=== PATIENT | female | born 1940 | race Caucasian/White ===

== ENCOUNTER 2016-05-23 22:22 | Inpatient (IN) | payer MEDICARE, OTHER ==
[~2016-05-23] VITALS: Ht 152.4 cm; Wt 63.5 kg
[~2016-05-23 22:22] MED LIST: ACET-868 PO; ESCI10TA PO; HYDR-3326 PO; METO25TA6 PO; MULT1TAB11 PO; ONDA-25 PO; PANT40TA4 PO
[2016-05-23] MEDS ORDERED: ONDANSETRON HCL/PF 4 MG/2 ML VIAL ONE (23:18)
[2016-05-23] MEDS ORDERED: IV NS 0.9% 1,000 ML ONE (23:18)
[2016-05-23] MEDS ORDERED: IV SET PRIMARY 1 EA INFUS.SET MC ONE (23:18)
[2016-05-23] MEDS ORDERED: IV NS 0.9% 1,000 ML BAG IV ONE (23:30)
[2016-05-23] MEDS ORDERED: ONDANSETRON HCL/PF 4 MG/2 ML VIAL IVP ONE (23:30)
[2016-05-23] MEDS ORDERED: SENN8.6T6 PO (23:32)
[2016-05-23] MEDS ORDERED: GUAI5SYR PO (23:32)
[2016-05-23] MEDS ORDERED: MAGN400O6 PO (23:32)
[2016-05-23] MEDS ORDERED: RISP0.5T2 PO (23:32)
[2016-05-23] MEDS ORDERED: LORA1TAB82 PO (23:32)
[2016-05-23] MEDS ORDERED: GABA100C PO (23:32)
[2016-05-23] MEDS ORDERED: BENZ1LOZ58 MM (23:32)
[2016-05-23] MEDS ORDERED: DOCU-25 PO (23:32)
[2016-05-23] MEDS ORDERED: MAG30ORA PO (23:32)
[2016-05-23] MEDS ORDERED: ZOLP5TAB2 PO (23:32)
[2016-05-23 23:39] LABS: ANION GAP 9 (5-14); CALCIUM, SERUM 8.5 mg/dL (8.5-10.1); CARBON DIOXIDE 30 mmol/L (21-32); CHLORIDE 111 mmol/L (98-107); CREATININE 1.5 mg/dL (0.6-1.3); GLUCOSE 105 mg/dL (74-106); POTASSIUM 4.6 mmol/L (3.5-5.1); SODIUM SERUM 145 mmol/L (136-145); UREA NITROGEN, BLOOD 27 mg/dL (7-18)
[2016-05-23 23:42] LABS: BASOPHILS # (AUTO) 0.1 /CMM (0.0-0.2); BASOPHILS % (AUTO) 1.4 % (0.0-2.0); DIFF TOTAL % 100 %; EOSINOPHILS # (AUTO) 0.4 /CMM (0.0-0.7); EOSINOPHILS % (AUTO) 6.6 % (0.0-6.0); HEMATOCRIT 22 % (33-45); LYMPHOCYTES # (AUTO) 1.7 /CMM (0.8-4.8); LYMPHOCYTES % (AUTO) 27.9 % (20.0-44.0); MEAN CORPUSCULAR HEMOGLOBIN 24 PG (26.0-33.0); MEAN CORPUSCULAR HGB CONC 31 g/dl (31.0-36.0); MEAN CORPUSCULAR VOLUME 77 fL (82-100); MONOCYTES # (AUTO) 0.5 /CMM (0.1-1.30); MONOCYTES % (AUTO) 7.5 % (2.0-12.0); NEUTROPHILS # (AUTO) 3.5 /CMM (1.8-8.9); NEUTROPHILS % (AUTO) 56.6 % (43.0-81.0); PLATELET COUNT (AUTO) 307 /CMM (150-450); WHITE BLOOD COUNT (AUTO) 6.3 K/uL (4.3-11.0)
[2016-05-23 23:45] LABS: ALANINE AMINOTRANSFERASE 15 U/L (12-78); ALBUMIN 3.2 g/dL (3.4-5.0); ASPARTATE AMINOTRANSFERASE 7 U/L (15-37); BILIRUBIN,TOTAL 0.2 mg/dL (0.2-1.0)
[2016-05-23 23:46] LABS: INDIRECT BILIRUBIN 0.2 mg/dL (0.0-1.1)
[2016-05-23 23:47] LABS: TROPONIN I < 0.017 ng/mL (0.00-0.056)
[2016-05-23 23:50] LABS: HEMOGLOBIN 6.8 g/dL (11.5-14.8)
[2016-05-23 23:56] LABS: INR 0.94 (0.87-1.13)
[2016-05-24] VITALS (23 sets, daily range): BP systolic 93–130; BP diastolic 46–72
[2016-05-24 00:33] LABS: EOSINOPHILS % (MANUAL) 6 % (0-4); LYMPHOCYTES % (MANUAL) 33 % (16-48)
[2016-05-24 00:34] LABS: ANISOCYTOSIS 1+; HYPOCHROMASIA 2+; PLATELET ESTIMATE ADEQUATE
[2016-05-24 00:50] LABS: KETONES,URINE NEGATIVE (NEGATIVE); LEUKOCYTE ESTERASE ,URINE 2+ (NEGATIVE)
[2016-05-24 00:54] LABS: ADD UA MICROSCOPIC YES
[2016-05-24 01:02] LABS: ADD URINE CULTURE YES; WBC,URINE 21-50 /HPF (0-3)
[2016-05-24 01:03] LABS: URINALYSIS COMMENT FEW WBC CLUMPING
[2016-05-24] MEDS ORDERED: ACETAMINOPHEN 325 MG TABLET PO PRN (02:00)
[2016-05-24] MEDS ORDERED: ONDANSETRON HCL/PF 4 MG/2 ML VIAL IVP PRN (02:00)
[2016-05-24] MEDS ORDERED: LORAZEPAM 1 MG TABLET PO PRN (02:00)
[2016-05-24] MEDS ORDERED: Z GUARD REMEDY 2 OZ OINT TP PRN (02:00)
[2016-05-24 02:43] LABS: CHOLESTEROL 154 mg/dL (<200); HDL CHOLESTEROL 34 mg/dL (40-60); LDL 89 mg/dL (0-99); TRIGLYCERIDES 240 mg/dL (30-150)
[2016-05-24] MEDS ORDERED: IV NS 0.9% 250 ML IV ONE (07:41)
[2016-05-24] MEDS ORDERED: BLOOD IV SET 1 EA INFUS.SET MC ONE ×2 (07:41→11:20)
[2016-05-24 07:58] LABS: CALCIUM, SERUM 7.9 mg/dL (8.5-10.1); CREATININE 1.2 mg/dL (0.6-1.3); POTASSIUM 4.6 mmol/L (3.5-5.1)
[2016-05-24 08:01] LABS: DIFF TOTAL % 100 %; EOSINOPHILS # (AUTO) 0.3 /CMM (0.0-0.7); LYMPHOCYTES # (AUTO) 1.4 /CMM (0.8-4.8); MEAN CORPUSCULAR HEMOGLOBIN 24 PG (26.0-33.0); MEAN CORPUSCULAR HGB CONC 31 g/dl (31.0-36.0); MEAN CORPUSCULAR VOLUME 77 fL (82-100); MONOCYTES # (AUTO) 0.4 /CMM (0.1-1.30); MONOCYTES % (AUTO) 7.2 % (2.0-12.0); NEUTROPHILS % (AUTO) 58.8 % (43.0-81.0); PLATELET COUNT (AUTO) 265 /CMM (150-450); RED BLOOD CELL COUNT(AUTO) 2.65 MIL/uL (4.0-5.2); WHITE BLOOD COUNT (AUTO) 5.1 K/uL (4.3-11.0)
[2016-05-24 08:37] LABS: HEMATOCRIT 20 % (33-45); HEMOGLOBIN 6.3 g/dL (11.5-14.8)
[2016-05-24] MEDS: METOPROLOL TARTRATE 25 MG TABLET PO SCH ×2 (09:00→17:16)
[2016-05-24 09:46] LABS: EOSINOPHILS % (MANUAL) 5 % (0-4); LYMPHOCYTES % (MANUAL) 32 % (16-48)
[2016-05-24 09:47] LABS: HYPOCHROMASIA 1+; PLATELET ESTIMATE ADEQUATE
[2016-05-24 09:48] LABS: MICROCYTOSIS 1+
[2016-05-24] MEDS: ESCITALOPRAM OXALATE (10 MG) 10 MG TABLET PO SCH (10:10)
[2016-05-24] MEDS: GABAPENTIN 100 MG CAPSULE PO SCH ×3 (10:10→17:16)
[2016-05-24] MEDS ORDERED: SET RED CAP 1 EA INFUS.SET MC ONE (11:20)
[2016-05-24] MEDS: PANTOPRAZOLE 40 MG VIAL IV SCH (12:15)
[2016-05-24 12:26] LABS: THYROID STIMULATING HORMONE 3.055 uIU/mL (0.358-3.74); URIC ACID 5.3 mg/dL (2.6-7.2)
[2016-05-24] MEDS: MORPHINE SULFATE INJ 2 MG/ML DISP.SYRIN IV PRN ×2 (17:25→21:51)
[2016-05-24] MEDS: GUAIFENESIN/D-METHORPHAN HB 5 ML UDC PO PRN ×2 (17:25→22:34)
[2016-05-24 20:22] LABS: HEMOGLOBIN 9.1 g/dL (11.5-14.8)
[2016-05-24] MEDS: risperiDONE 0.25 MG TABLET PO SCH (21:41)
[2016-05-24] MEDS: ZOLPIDEM TARTRATE 5 MG TABLET PO SCH (21:42)
[2016-05-25] VITALS: BP 110/60
[2016-05-25 00:40] VITALS: BP 110/60
[2016-05-25 04:00] VITALS: BP 103/48
[2016-05-25] MEDS: GUAIFENESIN/D-METHORPHAN HB 5 ML UDC PO PRN ×4 (05:00→23:25)
[2016-05-25] MEDS: MORPHINE SULFATE INJ 2 MG/ML DISP.SYRIN IV PRN ×4 (05:08→20:54)
[2016-05-25 06:35] LABS: BASOPHILS % (AUTO) 0.6 % (0.0-2.0); DIFF TOTAL % 100 %; EOSINOPHILS # (AUTO) 0.4 /CMM (0.0-0.7); EOSINOPHILS % (AUTO) 5.3 % (0.0-6.0); HEMATOCRIT 29 % (33-45); HEMOGLOBIN 9.1 g/dL (11.5-14.8); LYMPHOCYTES # (AUTO) 1.3 /CMM (0.8-4.8); LYMPHOCYTES % (AUTO) 18.5 % (20.0-44.0); MEAN CORPUSCULAR HEMOGLOBIN 25 PG (26.0-33.0); MEAN CORPUSCULAR HGB CONC 31 g/dl (31.0-36.0); MEAN CORPUSCULAR VOLUME 80 fL (82-100); MONOCYTES # (AUTO) 0.4 /CMM (0.1-1.30); MONOCYTES % (AUTO) 5.9 % (2.0-12.0); NEUTROPHILS # (AUTO) 4.8 /CMM (1.8-8.9); NEUTROPHILS % (AUTO) 69.7 % (43.0-81.0); RED BLOOD CELL COUNT(AUTO) 3.63 MIL/uL (4.0-5.2); RETICULOCYTE COUNT 2.4 % (0.6-2.5); WHITE BLOOD COUNT (AUTO) 6.9 K/uL (4.3-11.0)
[2016-05-25 06:48] LABS: CALCIUM, SERUM 8.4 mg/dL (8.5-10.1); CREATININE 1.3 mg/dL (0.6-1.3); PHOSPHORUS 3.6 mg/dL (2.5-4.9); POTASSIUM 4.2 mmol/L (3.5-5.1)
[2016-05-25 07:24] LABS: THYROID STIMULATING HORMONE 3.504 uIU/mL (0.358-3.74)
[2016-05-25 07:45] LABS: ERYTHROCYTE SEDIMENTATION RATE 27 MM/HR (0-30)
[2016-05-25 08:00] VITALS: BP 104/49
[2016-05-25] MEDS: ESCITALOPRAM OXALATE (10 MG) 10 MG TABLET PO SCH (08:59)
[2016-05-25] MEDS: PANTOPRAZOLE 40 MG VIAL IV SCH (08:59)
[2016-05-25] MEDS: GABAPENTIN 100 MG CAPSULE PO SCH ×3 (08:59→17:01)
[2016-05-25] MEDS: METOPROLOL TARTRATE 25 MG TABLET PO SCH ×2 (09:00→16:25)
[2016-05-25 10:36] LABS: EOSINOPHILS % (MANUAL) 4 % (0-4); LYMPHOCYTES % (MANUAL) 13 % (16-48)
[2016-05-25 10:37] LABS: ANISOCYTOSIS 1+; HYPOCHROMASIA 1+; PLATELET ESTIMATE DECREASED
[2016-05-25 10:38] LABS: PLATELET COUNT (AUTO) 73 /CMM (150-450)
[2016-05-25] MEDS ORDERED: SULFAMETH/TRIMETH 800/160 MG 1 UDTAB TABLET PO ONE (11:00)
[2016-05-25] MEDS ORDERED: IV SET PRIMARY PUMP SET 1 EA INFUS.SET MC ONE ×2 (11:18→18:41)
[2016-05-25] MEDS: Magnesium 1GM/D5W 100ML PREMIX 100 ML IV SCH ×2 (11:25→13:33)
[2016-05-25] MEDS: SULFAMETH/TRIMETH 800/160 MG 1 UDTAB TABLET PO SCH ×2 (11:25→22:38)
[2016-05-25 12:17] LABS: *SPE ALBUMIN 3.4 g/dL (2.9-4.4)
[2016-05-25 16:00] VITALS: BP 135/73
[2016-05-25] MEDS ORDERED: SOD FERRIC GLUC 125 MG in IV NS 0.9% 100 ML IV SCH (16:00)
[2016-05-25 20:00] VITALS: BP 127/76
[2016-05-25] MEDS: ZOLPIDEM TARTRATE 5 MG TABLET PO SCH (22:37)
[2016-05-25] MEDS: risperiDONE 0.25 MG TABLET PO SCH (22:38)
[2016-05-26] VITALS: BP 111/54
[2016-05-26 04:00] VITALS: BP 124/68
[2016-05-26 06:49] LABS: CALCIUM, SERUM 8.3 mg/dL (8.5-10.1); CREATININE 1.4 mg/dL (0.6-1.3); POTASSIUM 4.6 mmol/L (3.5-5.1)
[2016-05-26 08:00] VITALS: BP 103/73
[2016-05-26 08:15] LABS: VIT D, 25-HYDROXY 24.6 ng/mL (30.0-100.0)
[2016-05-26] MEDS: PANTOPRAZOLE 40 MG VIAL IV SCH ×2 (09:00→09:56)
[2016-05-26] MEDS: GUAIFENESIN/D-METHORPHAN HB 5 ML UDC PO PRN (10:33)
[2016-05-26] MEDS: ESCITALOPRAM OXALATE (10 MG) 10 MG TABLET PO SCH (10:33)
[2016-05-26] MEDS: GABAPENTIN 100 MG CAPSULE PO SCH ×2 (10:33→12:58)
[2016-05-26 10:35] VITALS: BP 132/91
[2016-05-26] MEDS: METOPROLOL TARTRATE 25 MG TABLET PO SCH (10:35)
[2016-05-26] MEDS: FERROUS SULFATE (325 MG) 325 MG/TAB TABLET PO SCH ×2 (10:36→12:58)
[2016-05-26] MEDS ORDERED: SULFAMETH/TRIMETH 800/160 MG 1 UDTAB TABLET PO SCH ×2 (11:00→22:00)
== END 2016-05-26 14:00 | DRG 811 ==
LOC: ER 22:27 → TELE 05-24 01:53 → MED 05-26 08:55
PROVIDERS: ATTEND Family Medicine
PROC: 30233N1 Transfusion of Nonautologous Red Blood Cells into Peripheral Vein, Percutaneous Approach (ICD-10-PCS; principal; 2016-05-24)
DX: D50.9 Iron deficiency anemia, unspecified (principal); N17.0 Acute kidney failure with tubular necrosis; N39.0 Urinary tract infection, site not specified; K76.9 Liver disease, unspecified; M19.90 Unspecified osteoarthritis, unspecified site; K21.9 Gastro-esophageal reflux disease without esophagitis; I25.10 Atherosclerotic heart disease of native coronary artery without angina pectoris; I11.9 Hypertensive heart disease without heart failure; F32.9 Major depressive disorder, single episode, unspecified; F03.90 Unspecified dementia, unspecified severity, without behavioral disturbance, psychotic disturbance, mood disturbance, and anxiety; Z87.11 Personal history of peptic ulcer disease; G89.4 Chronic pain syndrome; M54.5 Low back pain; Z87.891 Personal history of nicotine dependence; F41.9 Anxiety disorder, unspecified
CPT/HCPCS: 36415; 71010-TC; 76705-TC; 80048-TC; 80061-TC; 80076-TC; 81000-TC; 82105; 82306; 82378; 82728-TC; 82746; 83540-TC; 83615-TC; 83690-TC; 83735-TC; 84100-TC; 84155; 84165; 84443-TC; 84484-TC; 84550-TC; 85025-TC; 85027-TC; 85045-TC; 85652-TC; 85730-TC; 86304; 86850-TC; 86921-TC; 87081-TC; 87086-TC; 87186-TC; 97001-TC; A4606; C9113; J2270; J2405; J2916; J3475; J7030; J7050; P9016-BL; Z7610

== ENCOUNTER 2016-11-04 19:01 | Inpatient (IN) | payer MEDICARE, OTHER ==
[~2016-11-04] VITALS: Ht 154.9 cm; Wt 78.7 kg
[~2016-11-04 19:01] MED LIST changes: +BENZ1LOZ58 MM; +DOCU-25 PO; +GABA100C PO; +GUAI5SYR PO; -HYDR-3326 PO; +LORA1TAB82 PO; +MAG30ORA PO; +MAGN400O6 PO; -ONDA-25 PO; -PANT40TA4 PO; +RISP0.5T2 PO; +SENN8.6T6 PO; +ZOLP5TAB2 PO
--- NOTE | 2016-11-04 19:15 | NUR ---
76 YO FEMALE BB RA. PT IS ALERT X 3, C/O ABD PAIN WITH FEVER. PT DENIES SOB, N/V/DIARRHEA. PT GOWNED, PLACED ON CURB ATTENDANT. SKIN WARM AND DRY, RR EVEN AND UNLABORED. AWAITING ORDERS FROM PROVIDER
--- NOTE | 2016-11-04 19:35 | NUR ---
PADRON CATH STARTED PER MD ORDER
[2016-11-04] MEDS ORDERED: ONDANSETRON HCL/PF 4 MG/2 ML VIAL ONE (19:42)
--- NOTE | 2016-11-04 19:45 | NUR ---
EMT AT BED SIDE FOR EKG
--- NOTE | 2016-11-04 19:49 | NUR ---
MEDICATED PT ORDERED
[2016-11-04 19:55] LABS: LYMPHOCYTES # (AUTO) 0.7 /CMM (0.8-4.8); RDW COEFFICIENT OF VARIATION 15.9 (11.5-15.0)
[2016-11-04 19:59] LABS: BASOPHILS % (AUTO) 0.1 % (0.0-2.0); EOSINOPHILS % (AUTO) 0.2 % (0.0-6.0); HEMATOCRIT 26 % (33-45); HEMOGLOBIN 8.4 g/dL (11.5-14.8); LYMPHOCYTES % (AUTO) 5.8 % (20.0-44.0); MEAN CORPUSCULAR HEMOGLOBIN 26 PG (26.0-33.0); MEAN CORPUSCULAR HGB CONC 33 g/dl (31.0-36.0); MEAN CORPUSCULAR VOLUME 81 fL (82-100); MONOCYTES # (AUTO) 0.8 /CMM (0.1-1.30); MONOCYTES % (AUTO) 6.4 % (2.0-12.0); NEUTROPHILS # (AUTO) 10.8 /CMM (1.8-8.9); NEUTROPHILS % (AUTO) 87.5 % (43.0-81.0); PLATELET COUNT (AUTO) 435 /CMM (150-450); RED BLOOD CELL COUNT(AUTO) 3.22 MIL/uL (4.0-5.2); WHITE BLOOD COUNT (AUTO) 12.3 K/uL (4.3-11.0)
[2016-11-04] MEDS ORDERED: IV NS 0.9% 1,000 ML BAG IV ONE ×3 (20:00→22:00)
[2016-11-04] MEDS ORDERED: AZTREONAM 2 G in IV NS 0.9% 100 ML IV ONE (20:00)
[2016-11-04] MEDS ORDERED: ONDANSETRON HCL/PF 4 MG/2 ML VIAL IVP ONE (20:00)
[2016-11-04 20:05] LABS: CALCIUM, SERUM 8.6 mg/dL (8.5-10.1); CARBON DIOXIDE 23 mmol/L (21-32); CHLORIDE 99 mmol/L (98-107); GLUCOSE 104 mg/dL (74-106); POTASSIUM 4.5 mmol/L (3.5-5.1); SODIUM SERUM 133 mmol/L (136-145); UREA NITROGEN, BLOOD 45 mg/dL (7-18)
[2016-11-04] MEDS ORDERED: AZTREONAM 1 G VIAL ONE (20:07)
[2016-11-04 20:08] LABS: INR 1.13 (0.87-1.13); PROTHROMBIN TIME 11.9 SECS (9.5-12.7)
[2016-11-04 20:11] LABS: ALANINE AMINOTRANSFERASE 8 U/L (12-78); ALKALINE PHOSPHATASE 82 U/L (46-116); ASPARTATE AMINOTRANSFERASE 10 U/L (15-37); BILIRUBIN,DIRECT 0.1 mg/dL (0.0-0.2); BILIRUBIN,TOTAL 0.3 mg/dL (0.2-1.0); LIPASE 44 U/L (73-393); TOTAL PROTEIN, SERUM 6.9 g/dL (6.4-8.2)
[2016-11-04 20:13] LABS: TROPONIN I < 0.017 ng/mL (0.00-0.056)
[2016-11-04 21:19] LABS: BAND % (MANUAL) 13 % (0.0-5.0); LYMPHOCYTES % (MANUAL) 11 % (16-48); MONOCYTES % (MANUAL) 12 % (0-11.0); NEUTROPHILS % (MANUAL) 64 (42-76)
[2016-11-04 21:33] LABS: APPEARANCE,URINE Turbid (CLEAR); BILIRUBIN,URINE MODERATE (NEGATIVE); BLOOD, URINE Large Ery/uL (NEGATIVE); COLOR,URINE Yellow (YELLOW); KETONES,URINE Trace (NEGATIVE); LEUKOCYTE ESTERASE ,URINE Small (NEGATIVE); NITRITE, URINE Negative (NEGATIVE); PROTEIN,URINE >=300 mg/dl (NEGATIVE); UGLUCOSE Negative (NEGATIVE); UROBILINOGEN,URINE 0.2 EU/dL (0.2)
[2016-11-04 21:43] LABS: BACTERIA,URINE 3+ /HPF (None Seen); RBC,URINE TOO NUMEROUS TO COUN /HPF (0-2); SQUAMOUS EPITHELIAL CELL,UR Rare /HPF (None Seen); WBC,URINE TOO NUMEROUS TO COUN /HPF (0-3)
--- NOTE | 2016-11-04 21:46 | NUR ---
PT BP 86/48, RAY NOTIFIED. MEDICATED PT ORDERED
--- NOTE | 2016-11-04 22:31 | NUR ---
PT BP 76/50. MD SHARMA NOTIFIED. WILL START LEVOPHED PER ORDER MD SHARMA; TITRATE FOR SBP IN 90'S AND AWAIT CALLBACK FROM MD CORNEJO
[2016-11-04 22:36] LABS: HEMOGLOBIN 7.2 g/dL (11.5-14.8)
[2016-11-04] MEDS ORDERED: NOREPINEPHRINE 4 MG/4 ML AMPUL IV ONE ×2 (22:48→22:52)
[2016-11-04] MEDS ORDERED: NOREPINEPHRINE 8 MG in IV D5W 500 ML IV ONE (23:00)
--- NOTE | 2016-11-04 23:04 | NUR ---
STARTED LEVOPHED PER VERBAL ORDER SOHAN SHARMA. BP 92/51, WILL CONTINUE TO MONITOR
--- NOTE | 2016-11-04 23:23 | NUR ---
TITRATED LEVOPHED TO 12MCG/ MIN, SBP NOW 101, MD NOTIFIED
--- NOTE | 2016-11-04 23:50 | NUR ---
TRANSPORTED PT TO ICU BED WITH EMT WITHOUT INCIDENT
[2016-11-05] VITALS (69 sets, daily range): BP systolic 72–135; BP diastolic 28–74
[2016-11-05] MEDS ORDERED: MAGNESIUM HYDROXIDE 30 ML UDC PO PRN
[2016-11-05] MEDS ORDERED: Z GUARD REMEDY 2 OZ OINT TP PRN
[2016-11-05] MEDS ORDERED: ONDANSETRON HCL/PF 4 MG/2 ML VIAL IVP PRN
[2016-11-05] MEDS ORDERED: ZOLPIDEM TARTRATE 5 MG TABLET PO PRN
[2016-11-05] MEDS ORDERED: LORAZEPAM 1 MG TABLET PO PRN (00:30)
[2016-11-05] MEDS ORDERED: MAG HYDROX/AL HYDROX/SIMETH 30 ML UDC PO PRN ×2 (00:30)
[2016-11-05] MEDS ORDERED: GUAIFENESIN/D-METHORPHAN HB 5 ML UDC PO PRN (00:30)
[2016-11-05] MEDS ORDERED: ACETAMINOPHEN 325 MG TABLET PO PRN ×2 (00:30)
[2016-11-05] MEDS ORDERED: MAGNESIUM HYDROXIDE 30 ML UDC PO SCH (00:30)
[2016-11-05] MEDS ORDERED: NOREPINEPHRINE 8 MG in IV D5W 500 ML IV PRN (02:00)
[2016-11-05 03:11] LABS: CALCIUM, SERUM 7.5 mg/dL (8.5-10.1); CARBON DIOXIDE 18 mmol/L (21-32); CHLORIDE 104 mmol/L (98-107); CREATININE 3.2 mg/dL (0.6-1.3); GLUCOSE 176 mg/dL (74-106); MAGNESIUM 1.8 mg/dL (1.8-2.4); PHOSPHORUS 4.3 mg/dL (2.5-4.9); POTASSIUM 4.1 mmol/L (3.5-5.1); SODIUM SERUM 133 mmol/L (136-145); UREA NITROGEN, BLOOD 41 mg/dL (7-18)
[2016-11-05 03:14] LABS: CHOLESTEROL 82 mg/dL (<200); HDL CHOLESTEROL 23 mg/dL (40-60); LDL 39 mg/dL (0-99); TRIGLYCERIDES 87 mg/dL (30-150)
[2016-11-05 03:28] LABS: EOSINOPHILS % (AUTO) 0.2 % (0.0-6.0); HEMATOCRIT 25 % (33-45); HEMOGLOBIN 7.8 g/dL (11.5-14.8); LYMPHOCYTES # (AUTO) 1.1 /CMM (0.8-4.8); LYMPHOCYTES % (AUTO) 7.7 % (20.0-44.0); MEAN CORPUSCULAR HEMOGLOBIN 26 PG (26.0-33.0); MEAN CORPUSCULAR HGB CONC 31 g/dl (31.0-36.0); MEAN CORPUSCULAR VOLUME 82 fL (82-100); MONOCYTES # (AUTO) 0.5 /CMM (0.1-1.30); MONOCYTES % (AUTO) 3.7 % (2.0-12.0); NEUTROPHILS # (AUTO) 12.2 /CMM (1.8-8.9); NEUTROPHILS % (AUTO) 88.4 % (43.0-81.0); PLATELET COUNT (AUTO) 322 /CMM (150-450); RDW COEFFICIENT OF VARIATION 17.1 (11.5-15.0); RED BLOOD CELL COUNT(AUTO) 3.03 MIL/uL (4.0-5.2); WHITE BLOOD COUNT (AUTO) 13.8 K/uL (4.3-11.0)
[2016-11-05 04:19] LABS: BAND % (MANUAL) 55 % (0.0-5.0); LYMPHOCYTES % (MANUAL) 4 % (16-48); MONOCYTES % (MANUAL) 11 % (0-11.0); NEUTROPHILS % (MANUAL) 30 (42-76)
[2016-11-05] MEDS ORDERED: NOREPINEPHRINE 4 MG/4 ML AMPUL IV ONE (04:20)
--- NOTE | 2016-11-05 05:00 | NUR ---
RN NOTE AZACTAM 1 GRAM WAS NOT GIVEN @ 0500 DUE TO UNAVAILABILITY IN ENTIRE HOSPITAL. WILL CALL PHARMACY FOR DOSE. WILL ALSO ENDORSE TO AM RN.
--- NOTE | 2016-11-05 06:25 | NUR ---
RADIO NEWS ANCHOR PT WAS ADMITTED FROM ER WITH DIAGNOSIS SEPSIS, UTI, COLITIS. PT IS AWAKE, ALERT,ORIENTED, FOLLOW COMMANDS, SPEECH IS CLEAR, VALDO. MOVES ALL EXTREMITIES, LEGS ARE WEAK. PT IS ON O2 2L VIA N/C. LUNGS CLEAR. SCOPE-SR. NS IV BOLUS- 3000 ML GIVEN IN ER. PT WAS STILL HYPOTENSIVE. STARTED LEVOPHED DRIP / TITRATED TO KEEP SBP>90/ PT HAS CHRONIC ANEMIA. NO S/S OF ANY BLEEDING. IF HGB DROPS BELOW 7, GIVE 2 UNITS OF PRBC. / CURRENT H/H IS 7.8/25 /PT IS ANURIC /ACUTE RENAL FAILURE/. WILL FOLLOW CLOSE MONITORING.
[2016-11-05] MEDS ORDERED: PANTOPRAZOLE 40 MG TABLET.DR PO SCH (07:30)
--- NOTE | 2016-11-05 07:35 | NUR ---
MARINE ENGINEER RECEIVED PATIENT FROM THE PREVIOUS SHIFT. PATIENT IS IN BED. RESTING COMFORTABLY. NO ACUTE DISTRESS NOTED. EVEN AND NON LABORED BREATHING PATTERN. ON 3L NASAL CANNULA. AFEBRILE. SINUS RHYTHM ON MONITOR. TURNED AND REPOSITIONED FOR COMFORT AND WOUND PREVENTION. WILL CONTINUE TO MONITOR AND PROVIDE CARE.
[2016-11-05] MEDS ORDERED: MENTHOL/CETYLPYRD (CEPACOL) 1 LOZ LOZENGE MM PRN (08:00)
[2016-11-05] MEDS ORDERED: METOPROLOL TARTRATE 25 MG TABLET PO SCH (09:00)
[2016-11-05] MEDS: GABAPENTIN 100 MG CAPSULE PO SCH ×3 (09:00→17:19)
[2016-11-05] MEDS: MULTIVITAMINS,THERAGRAN 1 UDTAB TABLET PO SCH (09:00)
[2016-11-05] MEDS: DOCUSATE SODIUM 100 MG CAPSULE PO SCH ×3 (09:00→17:19)
[2016-11-05] MEDS: ESCITALOPRAM OXALATE (10 MG) 10 MG TABLET PO SCH (09:00)
[2016-11-05] MEDS ORDERED: FAMOTIDINE/PF INJ 20 MG/2 ML VIAL IV SCH (09:30)
[2016-11-05] MEDS: FAMOTIDINE/PF INJ 20 MG/2 ML VIAL IV SCH (09:48)
[2016-11-05] MEDS: AZTREONAM 1 G in IV NS 0.9% 100 ML IV SCH ×2 (09:49→15:05)
[2016-11-05] MEDS: HYDROCODONE/APAP 5/325MG 1 EACH TABLET PO PRN ×3 (10:03→18:54)
[2016-11-05] MEDS: IV NS 0.9% 1,000 ML IV PRN (13:07)
[2016-11-05] MEDS ORDERED: METRONIDAZOLE 500MG/ NS 100ML 250 MG in PREMIX 1 EA IV SCH (14:00)
[2016-11-05] MEDS ORDERED: LEVOFLOXACIN 500 MG /D5W 100ML 500 MG in PREMIX 1 EA IV ONE (15:00)
[2016-11-05] MEDS: METRONIDAZOLE 500MG/ NS 100ML 500 MG in PREMIX 1 EA IV SCH ×2 (15:06→21:03)
[2016-11-05] MEDS: NOREPINEPHRINE 16 MG in IV D5W 500 ML IV PRN (15:09)
--- NOTE | 2016-11-05 19:00 | NUR ---
RN INITIAL NOTE RECEIVED PT IN NO ACUTE DISTRESS IN BED. PT IS A/O X 1 WITH PERIODS OF CONFUSION. PT IS ON O2 VIA NC AT 4LPM AND TOLERATING WELL WITH O2 SAT @ 97%. PT NOT C/O ANY SOB, DIFFICULTY BREATHING OR PAIN AT THIS TIME. PT IS ON TELE BEDSIDE MONITORING WITH SR ON THE MONITOR. PT HAS ZORAN PICC THAT IS CLEAN DRY INTACT AND PATENT WITH NS @ 100ML/HR AND LEVOPHED @ 21 MCG/HR (TITRATABLE). PT HAS LEJ 20G THAT IS CLEAN DRY INTACT AND PATENT WITH SALINE FLUSH. BED IN LOW LOCK POSITION WITH RAILS UP X 2. CALL LIGHT WITHIN REACH AND ALL SAFETY MEASURES ENSURED. WILL CONTINUE TO MONITOR PT.
[2016-11-05] MEDS: risperiDONE 0.25 MG TABLET PO SCH (22:15)
[2016-11-05] MEDS: SENNOSIDES 8.6 MG TABLET PO SCH (22:15)
[2016-11-05] MEDS: ZOLPIDEM TARTRATE 5 MG TABLET PO SCH (22:16)
[2016-11-06] VITALS (92 sets, daily range): BP systolic 54–218; BP diastolic 23–159
[2016-11-06] MEDS: AZTREONAM 1 G in IV NS 0.9% 100 ML IV SCH ×4 (00:17→23:40)
[2016-11-06] MEDS: NOREPINEPHRINE 16 MG in IV D5W 500 ML IV PRN ×3 (00:18→18:26)
[2016-11-06] MEDS: HYDROCODONE/APAP 5/325MG 1 EACH TABLET PO PRN (00:18)
[2016-11-06] MEDS: IV NS 0.9% 1,000 ML IV PRN ×2 (03:02→16:45)
[2016-11-06] MEDS: METRONIDAZOLE 500MG/ NS 100ML 500 MG in PREMIX 1 EA IV SCH ×3 (04:21→21:03)
[2016-11-06 04:56] LABS: BASOPHILS % (AUTO) 0.1 % (0.0-2.0); EOSINOPHILS % (AUTO) 0.4 % (0.0-6.0); HEMATOCRIT 26 % (33-45); HEMOGLOBIN 8.2 g/dL (11.5-14.8); LYMPHOCYTES # (AUTO) 0.4 /CMM (0.8-4.8); LYMPHOCYTES % (AUTO) 4.4 % (20.0-44.0); MEAN CORPUSCULAR HEMOGLOBIN 25 PG (26.0-33.0); MEAN CORPUSCULAR HGB CONC 31 g/dl (31.0-36.0); MEAN CORPUSCULAR VOLUME 82 fL (82-100); MONOCYTES # (AUTO) 0.4 /CMM (0.1-1.30); MONOCYTES % (AUTO) 4.4 % (2.0-12.0); NEUTROPHILS # (AUTO) 8.8 /CMM (1.8-8.9); NEUTROPHILS % (AUTO) 90.7 % (43.0-81.0); PLATELET COUNT (AUTO) 475 /CMM (150-450); RDW COEFFICIENT OF VARIATION 16.5 (11.5-15.0); RED BLOOD CELL COUNT(AUTO) 3.22 MIL/uL (4.0-5.2); WHITE BLOOD COUNT (AUTO) 9.6 K/uL (4.3-11.0)
[2016-11-06 05:09] LABS: CALCIUM, SERUM 7.7 mg/dL (8.5-10.1); CARBON DIOXIDE 17 mmol/L (21-32); CHLORIDE 101 mmol/L (98-107); CREATININE 2.7 mg/dL (0.6-1.3); GLUCOSE 118 mg/dL (74-106); MAGNESIUM 1.6 mg/dL (1.8-2.4); PHOSPHORUS 4.2 mg/dL (2.5-4.9); POTASSIUM 4.3 mmol/L (3.5-5.1); SODIUM SERUM 131 mmol/L (136-145); UREA NITROGEN, BLOOD 40 mg/dL (7-18)
[2016-11-06 05:32] LABS: BAND % (MANUAL) 2 % (0.0-5.0); EOSINOPHILS % (MANUAL) 1 % (0-4); LYMPHOCYTES % (MANUAL) 11 % (16-48); MONOCYTES % (MANUAL) 6 % (0-11.0); NEUTROPHILS % (MANUAL) 80 (42-76)
--- NOTE | 2016-11-06 07:00 | NUR ---
ICU INITIAL NOTE RECEIVED PT IN BED, ASLEEP, EASY TO AROUSE, PT IS VERY DROWSY, ABLE TO FOLLOW COMMANDS, ABLE TO MAKE NEEDS KNOWN, PT IS ON BEDSIDE MONITOR SHOWING SR 80'S, NO S/S OF CHEST PAIN OR DISCOMFORT AT THIS TIME, PT IS ON 4L NC,SATING 96%, NO C/O OF SOB OR RESP.DISTRESS AT THIS TIME, PT IS CURRENTLY NPO EXCEPT MEDS, PT HAS F/C DRAINING MINIMAL URINE TO GRAVITY, PT HAS VERY LOOSE WATERY GREEN STOOL, PT HAS ZORAN MIDLINE, RUNNING LEVO @21MCG/MIN, NS@ 100ML/HR, C/D/I/PATENT, FLUSHING WELL, WITH GOOD BLOOD RETURN, NO S/S OF INFECTION/ INFILTRATION, RIJ #20G,SL, C/D/I/PATENT, FLUSHING WELL, NO S/S OF INFECTION/ INFILTRATION NOTED, PT IS NOTED WITH REDNESS, TREATMENT ACK AND CARRIED OUT, ALL SAFETY MEASURES IN PLACE AT ALL TIMES, CALL LIGHT WITHIN EASY REACH, WILL MONITOR PT TRISTIAN FOR CHANGES
--- NOTE | 2016-11-06 07:05 | NUR ---
RN CLOSING NOTE PT REMAINS IN NO ACUTE DISTRESS IN BED. PT DID NOT HAVE ANY SIGNIFICANT CHANGE IN CONDITION DURING SHIFT. ALL NEEDS MET ALL ORDERS CARRIED OUT. WILL ENDORSE REPORT TO AM RN FOR CONTINUITY OF CARE.
--- NOTE | 2016-11-06 08:30 | NUR ---
ICU NOTE PHOTOS TAKEN AND WOUND CONSULT ORDERED
[2016-11-06] MEDS: DOCUSATE SODIUM 100 MG CAPSULE PO SCH ×3 (08:33→16:37)
[2016-11-06] MEDS: MULTIVITAMINS,THERAGRAN 1 UDTAB TABLET PO SCH (08:34)
[2016-11-06] MEDS: ESCITALOPRAM OXALATE (10 MG) 10 MG TABLET PO SCH (08:34)
[2016-11-06] MEDS: GABAPENTIN 100 MG CAPSULE PO SCH ×3 (08:34→16:48)
[2016-11-06] MEDS: FAMOTIDINE/PF INJ 20 MG/2 ML VIAL IV SCH (09:00)
--- NOTE | 2016-11-06 10:00 | NUR ---
ICU NOTE DR. SANDOVAL MADE ROUNDS, AWARE OF ALL LABS AND TEST RESULTS, ORDERED FLEXISEAL. ALL ORDERS ACK
[2016-11-06 12:17] LABS: IRON, SERUM 15 ug/dl (50-175); TOTAL IRON BINDING CAPACITY 112 ug/dl (250-450)
--- NOTE | 2016-11-06 12:30 | NUR ---
ICU NOTE PAGED DR.YOKO ELIZABETH MD REGARDING POSITIVE CULTURES, AWAITING CALL BACK
[2016-11-06 12:31] LABS: FERRITIN 161 ng/mL (8-388)
[2016-11-06] MEDS ORDERED: FEE PK DOSING 1 MIN EA MC ONE (13:34)
[2016-11-06] MEDS ORDERED: VANCOMYCIN 0.75 GM in IV D5W 250 ML IV SCH (14:00)
[2016-11-06 15:36] LABS: OCCULT BLOOD STOOL POSITIVE (NEGATIVE)
--- NOTE | 2016-11-06 16:44 | NUR ---
ICU NOTE CALLED BACK, ALL NEW ORDERS ACK
[2016-11-06] MEDS: Magnesium 1GM/D5W 100ML PREMIX 100 ML IV SCH ×2 (16:45→17:33)
[2016-11-06] MEDS ORDERED: RENAL NOVASOURCE 1,000 ML BOTTLE GT PRN (17:00)
[2016-11-06] MEDS ORDERED: Magnesium 1GM/D5W 100ML PREMIX PIGGYBACK IV ONE (17:00)
--- NOTE | 2016-11-06 19:52 | NUR ---
SHEET METAL FABRICATOR: RECEIVED PT FROM DAY SHIFT RN, PT IS AAO X 2, ABLE TO MAKE NEEDS, ON PRESSORS LEVOPHED AT 21 MCG/MIN TITRATED DOWN TO 18 MCG/MIN, CONTINUE MONITORING BP, ON 4 L NASAL CANNULA, SATURATING 92-95%, NO DISTRESS. PT C/O PAIN 07/02 WILL GIVE TYLENOL PRN. NS GRAVITY WITH LOW URINE OUTPUT, MD AWARE. COMPLETE ASSESSMENT SEE ON FLOW SHEET. KEEP MONITORING..
[2016-11-06] MEDS: ZOLPIDEM TARTRATE 5 MG TABLET PO SCH (20:53)
--- NOTE | 2016-11-06 20:54 | NUR ---
CORROSION CONTROL SPECIALIST: AMBIEN 2.5 MG PO NOT GIVEN BECAUSE PT LOOKS SO DROWSY, LETHARGIC AND SLEEPY, WILL MONITOR....
[2016-11-06] MEDS: SENNOSIDES 8.6 MG TABLET PO SCH (20:55)
[2016-11-06] MEDS: risperiDONE 0.25 MG TABLET PO SCH (21:03)
[2016-11-07] VITALS (86 sets, daily range): BP systolic 76–118; BP diastolic 34–93
[2016-11-07] MEDS: IV NS 0.9% 1,000 ML IV PRN ×2 (04:42→15:05)
[2016-11-07] MEDS: METRONIDAZOLE 500MG/ NS 100ML 500 MG in PREMIX 1 EA IV SCH ×3 (04:43→21:18)
--- NOTE | 2016-11-07 07:15 | NUR ---
AUTO BODY REPAIR TECHNICIAN NOTES RECEIVED PATIENT AOX 2-3 , NOT IN ACUTE DISTRESS , DENIES SOB AND DISCOMFORT AT THIS TIME , SPO2 OF 98% VIA 3LPM NC , SR 75 ON BEDSIDE MONITOR , FC DRAINING WELL VIA GRAVITY WITH CLEAR YELLOW URINE , ZORAN MIDLINE PATENT AND INTACT WITH LEVOPHED @ 6MCG/MIN , NS @ 100NL/HR INFUSING WELL , R EJ # 20 PATENT AND INTACT SL , ALL NEEDS ATTENDED , BED ON LOW AND LOCKED POSITION , SIDE RAILS X2 ,CALL LIGHT WITHIN REACH , HOB @ 35 , WILL CONTINUE TO MONITOR
[2016-11-07] MEDS: DOCUSATE SODIUM 100 MG CAPSULE PO SCH (07:59)
[2016-11-07] MEDS: AZTREONAM 1 G in IV NS 0.9% 100 ML IV SCH (07:59)
[2016-11-07] MEDS: ESCITALOPRAM OXALATE (10 MG) 10 MG TABLET PO SCH (08:00)
[2016-11-07] MEDS: GABAPENTIN 100 MG CAPSULE PO SCH ×3 (08:00→16:01)
[2016-11-07] MEDS: MULTIVITAMINS,THERAGRAN 1 UDTAB TABLET PO SCH (08:01)
--- NOTE | 2016-11-07 08:18 | NUR ---
WOUND CARE CONSULT: PT PRESENTS WITH REDNESS AND RASH TO BUTTOCKS AND PERINEUM, PRESENT ON ADMISSION. PT NOTED TO BE INCONTINENT OF LOOSE STOOL. PT ON FIRST STEP MATTRESS. ALL SKIN PROTECTION MEASURES DISCUSSED WITH NURSING STAFF. WILL SEE PRN. OWUSU IN AGREEMENT WITH PLAN OF CARE. Addendum: 11/07/16 at 0819 by KARTIK MOON WNDNU Amended: Links added.
--- NOTE | 2016-11-07 08:38 | NUR ---
AIR EXPORT LOGISTICS MANAGER NOTES COLACE HELD , PT HAVING ACTIVE DIARRHEA , WILL CONTINUE TO MONITOR
[2016-11-07 08:43] LABS: EOSINOPHILS # (AUTO) 0.1 /CMM (0.0-0.7); EOSINOPHILS % (AUTO) 0.9 % (0.0-6.0); LYMPHOCYTES # (AUTO) 0.3 /CMM (0.8-4.8); MEAN CORPUSCULAR HEMOGLOBIN 26 PG (26.0-33.0); MEAN CORPUSCULAR HGB CONC 32 g/dl (31.0-36.0); MEAN CORPUSCULAR VOLUME 81 fL (82-100); MONOCYTES # (AUTO) 0.2 /CMM (0.1-1.30); MONOCYTES % (AUTO) 3.5 % (2.0-12.0); NEUTROPHILS # (AUTO) 6.1 /CMM (1.8-8.9); NEUTROPHILS % (AUTO) 91.6 % (43.0-81.0); PLATELET COUNT (AUTO) 191 /CMM (150-450); RDW COEFFICIENT OF VARIATION 16.8 (11.5-15.0); RED BLOOD CELL COUNT(AUTO) 2.01 MIL/uL (4.0-5.2); WHITE BLOOD COUNT (AUTO) 6.7 K/uL (4.3-11.0)
--- NOTE | 2016-11-07 08:46 | NUR ---
MATE FISHING VESSEL NOTES DR SANDOVAL AT BEDSIDE ,DISCUSSED PATIENT STATUS , ON LEVOPHED @ 6MCG/MIN TO KEEP SBP ABOVE 65 , STILL HAVING DIARRHEA , PENDING C DIFF STOOL RESULT , VERIFIED IF HE WANTS TO DISCONTINUE COLACE TID AND SENNA HS DUE TO DIARRHEA , MD AGREED TO DISCONTINUE MEDICATION , AFEBRILE , V/S STABLE , PENDING LABS , MD AWARE .
[2016-11-07 08:47] LABS: HEMATOCRIT 16 % (33-45); HEMOGLOBIN 5.2 g/dL (11.5-14.8)
[2016-11-07 09:12] LABS: CARBON DIOXIDE 12 mmol/L (21-32); CHLORIDE 107 mmol/L (98-107); CREATININE 1.5 mg/dL (0.6-1.3); GLUCOSE 244 mg/dL (74-106); MAGNESIUM 1.4 mg/dL (1.8-2.4); PHOSPHORUS 2.8 mg/dL (2.5-4.9); POTASSIUM 2.9 mmol/L (3.5-5.1); SODIUM SERUM 132 mmol/L (136-145); UREA NITROGEN, BLOOD 25 mg/dL (7-18)
[2016-11-07 09:29] LABS: HEMOGLOBIN 7.9 g/dL (11.5-14.8)
[2016-11-07 09:45] LABS: BAND % (MANUAL) 4 % (0.0-5.0); LYMPHOCYTES % (MANUAL) 8 % (16-48); MONOCYTES % (MANUAL) 2 % (0-11.0); NEUTROPHILS % (MANUAL) 86 (42-76)
[2016-11-07 09:45] LABS: CALCIUM, SERUM 5.5 mg/dL (8.5-10.1)
--- NOTE | 2016-11-07 09:45 | NUR ---
BLOW MOLDING MACHINE TENDER NOTES SPOKE WITH DR SANTACRUZ , DISCUSSED LABS , CRITICAL CA LEVEL OF 5.5 , PER MD CRITICAL CALCIUM LEVELS IS DUE TO ALBUMIN , ELECTROLYTE REPLACEMENT ORDERS CARRIED OUT
[2016-11-07] MEDS ORDERED: POTASSIUM CHLORIDE 20 MEQ POWDER PACKET NG ONE (10:00)
[2016-11-07] MEDS ORDERED: POTASSIUM CHLORIDE 20 MEQ TAB.PRT.SR PO ONE (10:00)
[2016-11-07] MEDS ORDERED: ALBUTEROL HALF STRENGTH 1.25 MG/3 ML VIAL.NEB NEB PRN (10:30)
[2016-11-07] MEDS: NOREPINEPHRINE 16 MG in IV D5W 500 ML IV PRN (10:31)
[2016-11-07] MEDS: CLOTRIMAZOLE 1% 15 GM TUBE TP SCH ×2 (11:33→16:01)
[2016-11-07] MEDS: FAMOTIDINE/PF INJ 20 MG/2 ML VIAL IV SCH (11:33)
[2016-11-07] MEDS: MAGNESIUM OXIDE 400 MG TABLET PO SCH ×2 (11:36→16:01)
[2016-11-07] MEDS: LEVOFLOXACIN 250 MG /D5W 50 ML 250 MG in PREMIX 1 EA IV SCH (11:36)
--- NOTE | 2016-11-07 11:38 | NUR ---
INTERNATIONAL SOURCING MANAGER NOTES CALLED DR SANTACRUZ , VERIFIED ORDER OF POTASSIUM CHLORIDE POWDER 40MEQ AND K DUR 40 MEQ P.O . PER MD CONTINUE POTASSIUM CHLORIDE POWDER 40MEQ AND CHANGE K DUR 40 MEQ TO KCL IV 40 MEQ , ORDERS CARRIED OUT
[2016-11-07] MEDS: POTASSIUM CL. PREMIX PERIPHER. 50 ML IV SCH ×4 (12:10→14:59)
--- NOTE | 2016-11-07 12:17 | NUR ---
BUYER GRAIN NOTES CALLED DR SANDOVAL , DISCUSSED LABS , NO ACTIVE BLEEDING AT THIS TIME , ELECTROLYTES ARE REPLACED , F/U GI CONSULT FOR POSITIVE STOOL OB 11/06/16 AND ANEMIA , PER MD HE WILL CALL DR JUÁREZ .
[2016-11-07] MEDS ORDERED: LEVOFLOXACIN 250 MG /D5W 50 ML 250 MG in PREMIX 1 EA IV SCH (15:00)
--- NOTE | 2016-11-07 15:00 | NUR ---
MERCHANDISE FLOW TEAM LEADER NOTES INSERTED FLEXISEAL ORDERED , PT NOTED WITH WATERY GREENISH STOOL . TOLERATED WELL , NO BLEEDING NOTED , WILL CONTINUE TO MONITOR
[2016-11-07] MEDS: VANCOMYCIN 0.75 GM in IV D5W 250 ML IV SCH (15:11)
--- NOTE | 2016-11-07 16:52 | NUR ---
DIRECTOR OF RADIO SERVICES NOTES SPOKE WITH DR SANDOVAL , DISUCSSED PT POSITIVE STOOL OB @ 11/06 , VERIFIED IF HE WANTS TO INCREASE PEPCID 20MG Q12 , PER MD JOE PEPCID 20MG AND START PT ON PROTONIX 40MG BID , ORDERS CARRIED OUT .
[2016-11-07] MEDS: PANTOPRAZOLE 40 MG VIAL IV SCH (16:55)
--- NOTE | 2016-11-07 20:42 | NUR ---
CABLE INSTALLER REPAIRER HELPER: PT COMFORTABLY RESTING, NO DISTRESS, DENIED PAIN AT THIS TIME. PADRON CATH TO GRAVITY, ADEQUATE OUTPUT, OFF LEVOPHED SINCE 1500. BP STABLE. SR ON MONITOR. AFEBRILE. KEEP MONITORING...
[2016-11-07] MEDS: ZOLPIDEM TARTRATE 5 MG TABLET PO SCH (21:19)
[2016-11-07] MEDS: risperiDONE 0.25 MG TABLET PO SCH (21:19)
[2016-11-08] VITALS (73 sets, daily range): BP systolic 70–123; BP diastolic 32–75
[2016-11-08] MEDS: IV NS 0.9% 1,000 ML IV PRN ×2 (02:24→14:46)
[2016-11-08] MEDS: METRONIDAZOLE 500MG/ NS 100ML 500 MG in PREMIX 1 EA IV SCH (04:34)
[2016-11-08 05:03] LABS: EOSINOPHILS # (AUTO) 0.1 /CMM (0.0-0.7); HEMATOCRIT 27 % (33-45); HEMOGLOBIN 8.2 g/dL (11.5-14.8); LYMPHOCYTES # (AUTO) 0.5 /CMM (0.8-4.8); LYMPHOCYTES % (AUTO) 7.3 % (20.0-44.0); MEAN CORPUSCULAR HEMOGLOBIN 26 PG (26.0-33.0); MEAN CORPUSCULAR HGB CONC 31 g/dl (31.0-36.0); MEAN CORPUSCULAR VOLUME 83 fL (82-100); MONOCYTES # (AUTO) 0.3 /CMM (0.1-1.30); MONOCYTES % (AUTO) 4.2 % (2.0-12.0); NEUTROPHILS # (AUTO) 5.9 /CMM (1.8-8.9); NEUTROPHILS % (AUTO) 87.5 % (43.0-81.0); PLATELET COUNT (AUTO) 283 /CMM (150-450); RDW COEFFICIENT OF VARIATION 17.2 (11.5-15.0); RED BLOOD CELL COUNT(AUTO) 3.18 MIL/uL (4.0-5.2); WHITE BLOOD COUNT (AUTO) 6.8 K/uL (4.3-11.0)
[2016-11-08 05:19] LABS: ALANINE AMINOTRANSFERASE 10 U/L (12-78); ALKALINE PHOSPHATASE 75 U/L (46-116); ASPARTATE AMINOTRANSFERASE 14 U/L (15-37); BILIRUBIN,TOTAL 0.1 mg/dL (0.2-1.0); CARBON DIOXIDE 18 mmol/L (21-32); CHLORIDE 108 mmol/L (98-107); CREATININE 1.9 mg/dL (0.6-1.3); GLUCOSE 85 mg/dL (74-106); MAGNESIUM 2.3 mg/dL (1.8-2.4); PHOSPHORUS 3.2 mg/dL (2.5-4.9); POTASSIUM 5.8 mmol/L (3.5-5.1); SODIUM SERUM 133 mmol/L (136-145); TOTAL PROTEIN, SERUM 5.6 g/dL (6.4-8.2); UREA NITROGEN, BLOOD 29 mg/dL (7-18)
[2016-11-08 05:37] LABS: ALBUMIN 1.3 g/dL (3.4-5.0)
[2016-11-08] MEDS: MULTIVITAMINS,THERAGRAN 1 UDTAB TABLET PO SCH (08:51)
[2016-11-08] MEDS: MAGNESIUM OXIDE 400 MG TABLET PO SCH ×2 (08:51→16:12)
[2016-11-08] MEDS: PANTOPRAZOLE 40 MG VIAL IV SCH ×2 (08:51→22:01)
[2016-11-08] MEDS: GABAPENTIN 100 MG CAPSULE PO SCH ×3 (08:51→16:12)
[2016-11-08] MEDS: ESCITALOPRAM OXALATE (10 MG) 10 MG TABLET PO SCH (08:51)
[2016-11-08] MEDS: CLOTRIMAZOLE 1% 15 GM TUBE TP SCH ×2 (08:52→16:12)
[2016-11-08] MEDS ORDERED: SODIUM POLYSTYRENE SULFONATE 15 G/60 ML BOTTLE PO ONE (09:00)
--- NOTE | 2016-11-08 10:41 | NUR ---
PREPRESS STRIPPER NOTE 0720: Received patient lethargic, verbalizing feeling weak. Alert to name. No c/o pain at this time. No respiratory distress noted, on 2LPM of O2 via NC tolerated. No c/o pain at this time. With ZORAN midline intact. Johnson cath intact, noted with faustino colored urine drained to BSD. 0930: S/E by Dr. Carrillo, no new order at this time. 0950: S/E by Dr. Mcgovern, patient tolerated meds PO. Kayaxelate given, aware patient still having diarrhea. IVF infusign well. BP on borderline, may restart Levophed, will continue to monitor. Awaiting GI consult.
[2016-11-08] MEDS: LEVOFLOXACIN 250 MG /D5W 50 ML 250 MG in PREMIX 1 EA IV SCH (11:06)
[2016-11-08] MEDS: NOREPINEPHRINE 16 MG in IV D5W 500 ML IV PRN (11:48)
--- NOTE | 2016-11-08 11:51 | NUR ---
BRASS WIND INSTRUMENTS TUBE BENDER NOTE Clarified with PICC nurse, midline on ZORAN ok to use, unable to place PICC. Restarted on Levophed for SBP 70's, will titrate as ordered.
[2016-11-08] MEDS: METRONIDAZOLE 500 MG TABLET PO SCH ×2 (12:16→22:02)
[2016-11-08] MEDS: VANCOMYCIN 0.75 GM in IV D5W 250 ML IV SCH (15:40)
[2016-11-08 17:48] LABS: CALCIUM, SERUM 7.7 mg/dL (8.5-10.1); CARBON DIOXIDE 17 mmol/L (21-32); CHLORIDE 109 mmol/L (98-107); CREATININE 1.8 mg/dL (0.6-1.3); GLUCOSE 135 mg/dL (74-106); POTASSIUM 4.9 mmol/L (3.5-5.1); SODIUM SERUM 135 mmol/L (136-145); UREA NITROGEN, BLOOD 27 mg/dL (7-18)
--- NOTE | 2016-11-08 19:45 | NUR ---
ENGINEERING RESEARCH MANAGER: SEEN AND EXAMINED BY DR. JUÁREZ (G.I.). UPDATED PT STATUS WT NO NEW ORDER AT THIS TIME UNTIL PT BECOMES STABLE.
[2016-11-08 21:36] LABS: APPEARANCE,URINE CLEAR (CLEAR); BILIRUBIN,URINE NEGATIVE (NEGATIVE); BLOOD, URINE NEGATIVE Ery/uL (NEGATIVE); COLOR,URINE YELLOW (YELLOW); KETONES,URINE NEGATIVE (NEGATIVE); LEUKOCYTE ESTERASE ,URINE TRACE (NEGATIVE); NITRITE, URINE NEGATIVE (NEGATIVE); PH,URINE 5.5 (5.0-8.0); PROTEIN,URINE TRACE mg/dl (NEGATIVE); UGLUCOSE NEGATIVE (NEGATIVE); UROBILINOGEN,URINE 0.2 EU/dL (0.2)
[2016-11-08 21:37] LABS: BACTERIA,URINE Few /HPF (None Seen); FINE GRANULAR CASTS,URINE Moderate /LPF (None Seen); RBC,URINE 0-2 /HPF (0-2); SQUAMOUS EPITHELIAL CELL,UR Few /HPF (None Seen)
[2016-11-08] MEDS: ZOLPIDEM TARTRATE 5 MG TABLET PO SCH (22:00)
--- NOTE | 2016-11-08 22:00 | NUR ---
RADIO MAINTAINER: ALYX BARCENAS PT HAS BEEN LETHARGIC AND MOSTLY ASLEEP SINCE BEGINNING OF SHIFT AND PER DAY SHIFT REPORT.
[2016-11-08] MEDS: risperiDONE 0.25 MG TABLET PO SCH (22:14)
[2016-11-09] VITALS (84 sets, daily range): BP systolic 79–152; BP diastolic 40–75
[2016-11-09] MEDS: IV NS 0.9% 1,000 ML IV PRN ×3 (00:57→23:43)
[2016-11-09] MEDS: METRONIDAZOLE 500 MG TABLET PO SCH ×3 (04:42→20:35)
[2016-11-09 04:55] LABS: CALCIUM, SERUM 7.8 mg/dL (8.5-10.1); CARBON DIOXIDE 16 mmol/L (21-32); CHLORIDE 110 mmol/L (98-107); CREATININE 1.6 mg/dL (0.6-1.3); GLUCOSE 130 mg/dL (74-106); POTASSIUM 4.5 mmol/L (3.5-5.1); SODIUM SERUM 137 mmol/L (136-145); UREA NITROGEN, BLOOD 25 mg/dL (7-18)
--- NOTE | 2016-11-09 06:20 | NUR ---
CEMENT FITTINGS MAKER: PT HAS BEEN MOSTLY ASLEEP/LETHARGIC THROUGHOUT THE SHIFT. WAKES UP WHEN CALLED BY NAME AND TOUCHED, VERBALLY RESPONSIVE AND ABLE TO FOLLOW COMMANDS. REMAINED ON 2L 02 VIA NC WT NO ACUTE DISTRESS. NO C/O PAIN OR EVIDENCE OF DISCOMFORT. AFEBRILE. SR ON WHEAT AND OATS FLAKE MILLER. ZORAN MIDLINE INFUSING LEVOPHED AT 8 MCG/MIN TO KEEP SBP ABOVE 90/MAP ABOVE 65 AND NS AT 100ML/HR WT NO COMPLICATIONS. F/C PATENT AND INTACT DRAINING TRENT COLORED URINE VIA GRAVITY. FLEXI SEAL PATENT AND INTACT DRAINING BROWN LIQUID STOOL. KEPT CLEAN AND DRY. SAFETY PRECAUTION NOTED AT ALL TIMES.
--- NOTE | 2016-11-09 07:28 | NUR ---
ICU/RN INITIAL NOTES,AM RECEIVED REPORT FROM NIGHT NURSE. PT SLEEPING IN BED, EASILY AWAKENS. FOLLOWS COMMANDS. PT ON NASAL CANULA, 2LITERS, NO ACUTE DISTRESS NOTED AT THIS TIME. PT SINUS ON TELE. LEVOPHED INFUSING FOR BP SUPPORT VIA MIDLINE, MD AWARE, CENTRAL LINE INSERTION PENDING. PT CURRENTLY NPO EXCEPT MEDS. PADRON IN PLACE DRAINING TRENT URINE/FLEXI IN PLACE. WILL CONTINUE TO TURN AND REPOSITION, BED IN LOW POSITION, SIDE RAILS UP, CALL LIGHT WITHIN REACH. WILL CONTINUE TO MONITOR AND CARE.
[2016-11-09] MEDS: MAGNESIUM OXIDE 400 MG TABLET PO SCH (08:10)
[2016-11-09] MEDS: ESCITALOPRAM OXALATE (10 MG) 10 MG TABLET PO SCH (08:10)
[2016-11-09] MEDS: PANTOPRAZOLE 40 MG VIAL IV SCH ×2 (08:10→20:35)
[2016-11-09] MEDS: MULTIVITAMINS,THERAGRAN 1 UDTAB TABLET PO SCH (08:10)
[2016-11-09] MEDS: GABAPENTIN 100 MG CAPSULE PO SCH ×3 (08:10→17:09)
[2016-11-09] MEDS: CLOTRIMAZOLE 1% 15 GM TUBE TP SCH ×2 (08:11→17:09)
[2016-11-09 08:54] LABS: BASOPHILS # (AUTO) 0.1 /CMM (0.0-0.2); BASOPHILS % (AUTO) 0.5 % (0.0-2.0); EOSINOPHILS # (AUTO) 0.1 /CMM (0.0-0.7); EOSINOPHILS % (AUTO) 1.1 % (0.0-6.0); HEMATOCRIT 26 % (33-45); LYMPHOCYTES # (AUTO) 0.8 /CMM (0.8-4.8); LYMPHOCYTES % (AUTO) 7.3 % (20.0-44.0); MEAN CORPUSCULAR HEMOGLOBIN 26 PG (26.0-33.0); MEAN CORPUSCULAR HGB CONC 31 g/dl (31.0-36.0); MEAN CORPUSCULAR VOLUME 82 fL (82-100); MONOCYTES # (AUTO) 0.5 /CMM (0.1-1.30); MONOCYTES % (AUTO) 4.5 % (2.0-12.0); NEUTROPHILS # (AUTO) 9.3 /CMM (1.8-8.9); NEUTROPHILS % (AUTO) 86.6 % (43.0-81.0); PLATELET COUNT (AUTO) 451 /CMM (150-450); RDW COEFFICIENT OF VARIATION 17.6 (11.5-15.0); RED BLOOD CELL COUNT(AUTO) 3.11 MIL/uL (4.0-5.2); WHITE BLOOD COUNT (AUTO) 10.8 K/uL (4.3-11.0)
[2016-11-09] MEDS: LEVOFLOXACIN 250 MG /D5W 50 ML 250 MG in PREMIX 1 EA IV SCH (11:16)
[2016-11-09] MEDS: NOREPINEPHRINE 16 MG in IV D5W 500 ML IV PRN (11:17)
[2016-11-09] MEDS: VANCOMYCIN 0.75 GM in IV D5W 250 ML IV SCH (13:58)
--- NOTE | 2016-11-09 18:00 | NUR ---
ICU/RN: PT REFUSED TO EAT DINNER
[2016-11-09 18:37] LABS: BASOPHILS # (AUTO) 0.1 /CMM (0.0-0.2); BASOPHILS % (AUTO) 0.5 % (0.0-2.0); EOSINOPHILS # (AUTO) 0.1 /CMM (0.0-0.7); EOSINOPHILS % (AUTO) 0.8 % (0.0-6.0); HEMATOCRIT 28 % (33-45); HEMOGLOBIN 8.5 g/dL (11.5-14.8); LYMPHOCYTES # (AUTO) 0.9 /CMM (0.8-4.8); LYMPHOCYTES % (AUTO) 6.5 % (20.0-44.0); MEAN CORPUSCULAR HEMOGLOBIN 25 PG (26.0-33.0); MEAN CORPUSCULAR HGB CONC 31 g/dl (31.0-36.0); MEAN CORPUSCULAR VOLUME 83 fL (82-100); MONOCYTES # (AUTO) 0.9 /CMM (0.1-1.30); MONOCYTES % (AUTO) 6.1 % (2.0-12.0); NEUTROPHILS # (AUTO) 12.2 /CMM (1.8-8.9); NEUTROPHILS % (AUTO) 86.1 % (43.0-81.0); PLATELET COUNT (AUTO) 348 /CMM (150-450); RDW COEFFICIENT OF VARIATION 17.6 (11.5-15.0); RED BLOOD CELL COUNT(AUTO) 3.35 MIL/uL (4.0-5.2); WHITE BLOOD COUNT (AUTO) 14.1 K/uL (4.3-11.0)
--- NOTE | 2016-11-09 18:57 | NUR ---
ICU/RN: AT BEDSIDE. INFORMED HIM THAT THERE IS BRIGHT RED BLOOD IN FLEXI. POSSIBLE SCOPE ON SATURDAY. NEW ORDERS TO CHECK H/H NOW
--- NOTE | 2016-11-09 19:17 | NUR ---
ICU/RN ENDING NOTES,AM REPORT ENDORSED TO NIGHT NURSE FOR CONTINUATION OF CARE. PT ON ROOM AIR, NO ACUTE DISTRESS NOTED AT THIS TIME. PT ON TELE, SINUS. LEVOPHED INFUSING AT 4MCG, MAINTAINING BP >90. SOME BRIGHT RED BLOOD NOTED, MD NOTIFIED. ALL NEEDS MET, SAFETY MEASURES TAKEN, BED IN LOW POSITION, SIDE RAILS UP, CALL LIGHT WITHIN REACH.
--- NOTE | 2016-11-09 19:26 | NUR ---
UI PROGRAMMER. INITIAL ASSESSMENT. RECEIVED THE PT REST ON THE BED. AWAKE, LETHARGIC. OXYGEN 2L VIA NASAL CANNULA SAT 98%. NO ACUTE DISTRESS NOTED. FOREST MANAGEMENT PROFESSOR SHOWING NSR. IV LT UPPER ARM MID LINE IVF NS 100ML/H,LEVOPHED 4MCG/MIN. FC PATENT. FLEXA SEAL INTACT. HOB ELEVATED. TURN AND REPOSITION Q2H. WILL CONTINUE TO MONITOR VITALS.
[2016-11-09] MEDS: MESALAMINE 400 MG CAP PO SCH (20:35)
[2016-11-09] MEDS: ZOLPIDEM TARTRATE 5 MG TABLET PO SCH (22:00)
[2016-11-09] MEDS: risperiDONE 0.25 MG TABLET PO SCH (22:45)
[2016-11-10] VITALS (70 sets, daily range): BP systolic 87–133; BP diastolic 46–73
--- NOTE | 2016-11-10 03:12 | NUR ---
NURSE PRACTITIONER MANAGER. AM CARE. ORAL CARE, BED BATH GIVEN. LINEN CHANGED, REMAINING SAME OXYGEN 2L VIA NASAL CANNULA. SAT 98%. NO ACUTE DISTRESS NOTED. BOWLING BALL GRADER SHOWING NSR. IV LT UPPER ARM MIDLINE. IVF NS 100ML/H, LEVOPHED 10MCG/MIN. FC PATENT. URINE DRAINING. FLEXA SEAL INTACT. HOB ELEVATED. TURN AND REPOSITION Q2H. WILL CONTINUE TO MONITOR VITALS.
[2016-11-10] MEDS: METRONIDAZOLE 500 MG TABLET PO SCH ×3 (04:18→20:29)
[2016-11-10 04:47] LABS: EOSINOPHILS # (AUTO) 0.1 /CMM (0.0-0.7); EOSINOPHILS % (AUTO) 0.8 % (0.0-6.0); HEMATOCRIT 25 % (33-45); HEMOGLOBIN 7.9 g/dL (11.5-14.8); LYMPHOCYTES % (AUTO) 6.8 % (20.0-44.0); MEAN CORPUSCULAR HEMOGLOBIN 26 PG (26.0-33.0); MEAN CORPUSCULAR HGB CONC 32 g/dl (31.0-36.0); MEAN CORPUSCULAR VOLUME 82 fL (82-100); MONOCYTES # (AUTO) 0.6 /CMM (0.1-1.30); MONOCYTES % (AUTO) 4.5 % (2.0-12.0); NEUTROPHILS # (AUTO) 12.6 /CMM (1.8-8.9); NEUTROPHILS % (AUTO) 87.9 % (43.0-81.0); PLATELET COUNT (AUTO) 369 /CMM (150-450); RDW COEFFICIENT OF VARIATION 17.8 (11.5-15.0); RED BLOOD CELL COUNT(AUTO) 3.04 MIL/uL (4.0-5.2); WHITE BLOOD COUNT (AUTO) 14.3 K/uL (4.3-11.0)
[2016-11-10 04:52] LABS: CALCIUM, SERUM 7.6 mg/dL (8.5-10.1); CARBON DIOXIDE 15 mmol/L (21-32); CHLORIDE 113 mmol/L (98-107); CREATININE 1.3 mg/dL (0.6-1.3); GLUCOSE 94 mg/dL (74-106); POTASSIUM 4.1 mmol/L (3.5-5.1); SODIUM SERUM 140 mmol/L (136-145); UREA NITROGEN, BLOOD 20 mg/dL (7-18)
[2016-11-10 05:58] LABS: EOSINOPHILS % (MANUAL) 2 % (0-4); LYMPHOCYTES % (MANUAL) 4 % (16-48); MONOCYTES % (MANUAL) 3 % (0-11.0); NEUTROPHILS % (MANUAL) 91 (42-76)
--- NOTE | 2016-11-10 06:28 | NUR ---
ANNOUNCER. H&H 7.9. MD ORDER H&H ,,< 8 1 UNIT PRBC. . telephone consent taken. 1 unit prbc ordered.
--- NOTE | 2016-11-10 07:57 | NUR ---
SKIN CARE SPECIALIST; ASSESSMENT PT APPEARS TO BE SLEEPING, BUT AROUSABLE. PT ORIENTED TO SELF.ON LEVOPHED DRIP CURRENTLY AT 10MCG/MIN. WILL REVIEW PARAMETERS AND WILL TITRATE ACCORDINGLY. INFUSING INTO LEFT UPPER ARM MIDLINE., WITH 3PORTS. PT ALSO RUNNING NORMAL SALINE AT 100ML/HR. PADRON CATH INTACT DRAINING TO GRAVITY CLEAR YELLOW URINE, WITH SEDIMENTATION. FLEXI-SEAL INTACT DRAINING LIQUID STOOL. PENDING TRANSFUSION OF ONE UNIT OF PRBC FOR HGB OF 7.9 PER STANDING ORDERS. WILL F/U WITH LAB. NO ACUTE DISTRESS NOTED. CALL LIGHT WITH IN REACH. BED SET TO LOW POSITION. WILL CONTINUE TO MONITOR.
[2016-11-10] MEDS: PANTOPRAZOLE 40 MG VIAL IV SCH ×2 (08:42→20:29)
[2016-11-10] MEDS: MESALAMINE 400 MG CAP PO SCH ×3 (08:42→16:44)
[2016-11-10] MEDS: GABAPENTIN 100 MG CAPSULE PO SCH ×3 (08:42→16:44)
[2016-11-10] MEDS: ESCITALOPRAM OXALATE (10 MG) 10 MG TABLET PO SCH (08:42)
[2016-11-10] MEDS: MULTIVITAMINS,THERAGRAN 1 UDTAB TABLET PO SCH (08:42)
[2016-11-10] MEDS: CLOTRIMAZOLE 1% 15 GM TUBE TP SCH ×2 (08:43→16:44)
[2016-11-10] MEDS: IV NS 0.9% 1,000 ML IV PRN (09:26)
[2016-11-10] MEDS: NOREPINEPHRINE 16 MG in IV D5W 500 ML IV PRN ×2 (09:28→17:19)
--- NOTE | 2016-11-10 10:36 | NUR ---
REAL ESTATE CONSULTANT; GI DR. JUÁREZ AT BEDSIDE. UPDATE WAS GIVEN. DISCUSSED THAT PT WILL RECEIVE DONE UNIT OF PRBC PER STANDING ORDER. DR. JUÁREZ ABLE TO SPEAK WITH PT REGARDING COLONOSCOPY AT THIS TIME PT IS REFUSING PROCEDURE. WILL CONTINUE TO MONITOR FOR ANY S/S OF BLEEDING
[2016-11-10] MEDS: LEVOFLOXACIN 250 MG /D5W 50 ML 250 MG in PREMIX 1 EA IV SCH (10:42)
[2016-11-10] MEDS ORDERED: risperiDONE 0.25 MG TABLET PO PRN (13:00)
[2016-11-10] MEDS: VANCOMYCIN 0.75 GM in IV D5W 250 ML IV SCH (13:28)
[2016-11-10] MEDS: HYDROCODONE/APAP 5/325MG 1 EACH TABLET PO PRN (16:52)
--- NOTE | 2016-11-10 19:24 | NUR ---
BUGGYMAN.INITIAL ASSESSMENT, RECEIVED THE PT REST ON THE BED. AWAKE, ALERT, FOLLOW COMMANDS.STILL LETHARGIC. OXYGEN 2L VIA NASAL CANNULA SAT 98%. NO ACUTE DISTRESS NOTED. OPERATOR RECEPTIONIST SHOWING NSR. IV LT UPPER ARM MID LINE IVF NS 100ML/H, LEVOPHED 4MCG/MIN. FC PATENT. FLEXA SEAL INTACT. HOB ELEVATED. TURN AND REPOSITION Q2H. WILL CONTINUE TO MONITOR VITALS.
[2016-11-10] MEDS: ZOLPIDEM TARTRATE 5 MG TABLET PO SCH (21:19)
--- NOTE | 2016-11-10 23:09 | NUR ---
RN NOT READY FOR CT SCAN, WILL CALL BACK WHEN READY.
[2016-11-11] VITALS (69 sets, daily range): BP systolic 82–126; BP diastolic 47–76
[2016-11-11] MEDS: IV NS 0.9% 1,000 ML IV PRN ×3 (01:45→21:35)
--- NOTE | 2016-11-11 04:07 | NUR ---
BOAT BUFFER PLASTIC, AM CARE, ORAL CARE, BED BATH GIVEN. LINEN CHANGED, REMAININ SAME OXYGEN 2L VIA NASAL CANNULA. SAT 98%.NO ACUTE DISTRESS NOTED. SAFETY RISK LEAD SHOWING NSR. IV LT UPPER ARM PICC LINE IVF NS 100ML/J.FC PATENT. URINE DRAINING. FLEXA SEAL INTACT. HOB ELEVATED. TURN AND REPOSITION Q2H. WILL CONTINUE TO MONITOR VITALS. IV LT HAD MID LINE. IV NS 100ML/H. LEVOPHED 4MCG/MIN, HOB ELEVATED. TURN AND REPOSITION Q2H. WILL CONTINUE TO MONITOR VITALS.
[2016-11-11] MEDS: METRONIDAZOLE 500 MG TABLET PO SCH ×3 (04:25→21:23)
[2016-11-11 05:17] LABS: EOSINOPHILS # (AUTO) 0.1 /CMM (0.0-0.7); EOSINOPHILS % (AUTO) 0.7 % (0.0-6.0); HEMATOCRIT 28 % (33-45); HEMOGLOBIN 9.2 g/dL (11.5-14.8); LYMPHOCYTES # (AUTO) 0.8 /CMM (0.8-4.8); LYMPHOCYTES % (AUTO) 6.7 % (20.0-44.0); MEAN CORPUSCULAR HEMOGLOBIN 27 PG (26.0-33.0); MEAN CORPUSCULAR HGB CONC 33 g/dl (31.0-36.0); MEAN CORPUSCULAR VOLUME 82 fL (82-100); MONOCYTES # (AUTO) 0.8 /CMM (0.1-1.30); MONOCYTES % (AUTO) 6.3 % (2.0-12.0); NEUTROPHILS # (AUTO) 10.8 /CMM (1.8-8.9); NEUTROPHILS % (AUTO) 86.3 % (43.0-81.0); PLATELET COUNT (AUTO) 293 /CMM (150-450); RDW COEFFICIENT OF VARIATION 17.2 (11.5-15.0); RED BLOOD CELL COUNT(AUTO) 3.45 MIL/uL (4.0-5.2); WHITE BLOOD COUNT (AUTO) 12.5 K/uL (4.3-11.0)
[2016-11-11 05:31] LABS: CALCIUM, SERUM 7.8 mg/dL (8.5-10.1); CARBON DIOXIDE 18 mmol/L (21-32); CHLORIDE 112 mmol/L (98-107); CREATININE 1.2 mg/dL (0.6-1.3); GLUCOSE 86 mg/dL (74-106); SODIUM SERUM 140 mmol/L (136-145); UREA NITROGEN, BLOOD 16 mg/dL (7-18)
--- NOTE | 2016-11-11 07:30 | NUR ---
COPY CUTTER RECEIVED PATIENT FROM THE PREVIOUS SHIFT. PATIENT IS IN BED. RESTING COMFORTABLY. SLEEPING BUT ALERT. PATIENT IS ABLE TO VERBALIZE NEEDS. ALERT AND ORIENTED X 2. ON LEVEOPHED AT 3 MCG/MIN. AFEBRILE. SINUS RHYTHM ON MONITOR. TURNED AND REPOSITIONED FOR COMFORT AND WOUND PREVENTION. WILL CONTINUE TO MONITOR AND PROVIDE CARE.
[2016-11-11] MEDS: PANTOPRAZOLE 40 MG VIAL IV SCH ×2 (10:04→21:23)
[2016-11-11] MEDS: GABAPENTIN 100 MG CAPSULE PO SCH ×3 (10:05→16:25)
[2016-11-11] MEDS: ESCITALOPRAM OXALATE (10 MG) 10 MG TABLET PO SCH (10:05)
[2016-11-11] MEDS: MULTIVITAMINS,THERAGRAN 1 UDTAB TABLET PO SCH (10:05)
[2016-11-11] MEDS: MESALAMINE 400 MG CAP PO SCH ×3 (10:06→16:25)
[2016-11-11] MEDS: CLOTRIMAZOLE 1% 15 GM TUBE TP SCH ×2 (10:07→16:25)
[2016-11-11] MEDS: LEVOFLOXACIN 250 MG /D5W 50 ML 250 MG in PREMIX 1 EA IV SCH (11:07)
[2016-11-11] MEDS: VANCOMYCIN 0.75 GM in IV D5W 250 ML IV SCH (14:19)
--- NOTE | 2016-11-11 20:29 | NUR ---
received pt from day shift, alert, follows commands, confused at times, SR, on 2L 02 sat well, lungs congested, some non pitting edema all extremities, f/c OK output, rectal tube, diarrhea, tolerates diet, v/s stable, no pain, pt turned and repositioned.
[2016-11-11] MEDS: ZOLPIDEM TARTRATE 5 MG TABLET PO SCH (21:24)
--- NOTE | 2016-11-11 21:25 | NUR ---
Ambien not given, pt is lethargic.
[2016-11-12] VITALS (32 sets, daily range): BP systolic 92–126; BP diastolic 44–72
--- NOTE | 2016-11-12 00:56 | NUR ---
pt is resting in the bed, v/s stable, no pain, pt turned and repositioned q2hrs.
--- NOTE | 2016-11-12 04:16 | NUR ---
pt is resting in the bed, no acute distress overnight, alert, follows commands, v/s stable, no pain, pt cleaned, changed and repositioned q2hrs.
[2016-11-12] MEDS: METRONIDAZOLE 500 MG TABLET PO SCH ×3 (04:51→20:03)
[2016-11-12 05:02] LABS: BASOPHILS % (AUTO) 0.1 % (0.0-2.0); EOSINOPHILS % (AUTO) 0.3 % (0.0-6.0); HEMATOCRIT 28 % (33-45); HEMOGLOBIN 8.9 g/dL (11.5-14.8); LYMPHOCYTES # (AUTO) 0.6 /CMM (0.8-4.8); LYMPHOCYTES % (AUTO) 6.4 % (20.0-44.0); MEAN CORPUSCULAR HEMOGLOBIN 27 PG (26.0-33.0); MEAN CORPUSCULAR HGB CONC 32 g/dl (31.0-36.0); MEAN CORPUSCULAR VOLUME 82 fL (82-100); MONOCYTES # (AUTO) 0.4 /CMM (0.1-1.30); MONOCYTES % (AUTO) 4.8 % (2.0-12.0); NEUTROPHILS # (AUTO) 7.8 /CMM (1.8-8.9); NEUTROPHILS % (AUTO) 88.4 % (43.0-81.0); PLATELET COUNT (AUTO) 275 /CMM (150-450); RDW COEFFICIENT OF VARIATION 17.3 (11.5-15.0); RED BLOOD CELL COUNT(AUTO) 3.35 MIL/uL (4.0-5.2); WHITE BLOOD COUNT (AUTO) 8.9 K/uL (4.3-11.0)
[2016-11-12 05:23] LABS: CALCIUM, SERUM 7.8 mg/dL (8.5-10.1); CARBON DIOXIDE 16 mmol/L (21-32); CHLORIDE 114 mmol/L (98-107); CREATININE 1.2 mg/dL (0.6-1.3); GLUCOSE 75 mg/dL (74-106); POTASSIUM 3.9 mmol/L (3.5-5.1); SODIUM SERUM 141 mmol/L (136-145); UREA NITROGEN, BLOOD 15 mg/dL (7-18)
[2016-11-12] MEDS: MULTIVITAMINS,THERAGRAN 1 UDTAB TABLET PO SCH (08:20)
[2016-11-12] MEDS: PANTOPRAZOLE 40 MG VIAL IV SCH ×2 (08:20→20:03)
[2016-11-12] MEDS: GABAPENTIN 100 MG CAPSULE PO SCH ×3 (08:20→17:29)
[2016-11-12] MEDS: ESCITALOPRAM OXALATE (10 MG) 10 MG TABLET PO SCH (08:20)
[2016-11-12] MEDS: MESALAMINE 400 MG CAP PO SCH ×3 (08:20→17:29)
[2016-11-12] MEDS: CLOTRIMAZOLE 1% 15 GM TUBE TP SCH ×2 (08:21→17:30)
[2016-11-12] MEDS: IV NS 0.9% 1,000 ML IV PRN ×2 (08:35→22:13)
--- NOTE | 2016-11-12 09:00 | NUR ---
HEALTH AND FITNESS PROFESSOR NOTE 0720: Received patient resting well. A/Ox2. No respiratory distress noted, on 2LPM of O2 via NC. With ZORAN midline intact, IVF infusing well. With Johnson cath intact, noted with faustino colored urine drained to BSD. With Flexiseal intact, still noted with loose stool. 0830: Able to eat 50% for breakfast, encouraged to eat more. 0900: Kept clean, warm and dry. Needs attended.
[2016-11-12] MEDS: LEVOFLOXACIN 250 MG /D5W 50 ML 250 MG in PREMIX 1 EA IV SCH (11:20)
--- NOTE | 2016-11-12 13:25 | NUR ---
COOK NIGHT NOTE 1000: S/E by Dr. Carrillo, no new order at this time. 1030: S/E by Dr. Mcgovern, verbalized may transfer to [facility], CN aware. 1130: S/E by Dr. Garcia, no new order at this time. 1300: No any significant changes noted. Awaiting room for [facility].
[2016-11-12] MEDS: VANCOMYCIN 0.75 GM in IV D5W 250 ML IV SCH (13:35)
--- NOTE | 2016-11-12 15:05 | NUR ---
TD/RN REPORT FROM ICU REPORT GIVEN BY ICU NURSE ISRAEL, FOR PT TO BE DOWNGRADED TO [facility]. AWAITING FOR PT'S ARRIVAL.
--- NOTE | 2016-11-12 15:15 | NUR ---
TD/BAG WASHER OF CARE PT ARRIVED VIA BED FROM ICU ACCOMPANIED BY ICU NURSE ISRAEL. PT PLACED ON 2L O2 VIA N/C SATURATING @ 97%, TELE MONITORING BOX PLACE, NOTED WITH SINUS RHYTHM, HR 82. PT A/O X 2, DENIES PAIN AT THIS TIME. IV SITES PATENT, IV INFUSION OF NS @ 100CC/HR RESUMED, RECTAL TUBE AND PADRON CATHETER INTACT. PADRON CATHETER NOTED WITH YELLOW CLOUDY URINE OUTPUT, RECTAL TUBE BAG NOTED WITH LIQUID DARK BROWN FECAL MATTER. PT IS COMFORTABLE AT THIS TIME. CARE AND MONITORING TO BE CONTINUED. CL WITHIN REACHED AND SAFETY MAINTAINED.
--- NOTE | 2016-11-12 15:25 | NUR ---
SENIOR NETWORK SYSTEMS ENGINEER NOTE Report give to Rhiannon KAY. Transferred patient via bed and using ACLS protocols. No any significant changes during the transfer. Kept clean, warm and dry. Needs attended. Kept call light at reach. SBP remained >90.
--- NOTE | 2016-11-12 19:06 | NUR ---
TD/RN AM SHIFT END NOTES NO ACUTE CHANGE OF CONDITION NOTED SINCE PT WAS TRANSFERRED FROM ICU. NEEDS MET. PT ENDORSED TO PM NURSE TO CONTINUE CARE. CL WITHIN REACHED AND SAFETY MAINTAINED.
[2016-11-12] MEDS: VANCOMYCIN 500 MG in IV D5W 100 ML IV SCH (19:34)
[2016-11-12] MEDS: HYDROCODONE/APAP 5/325MG 1 EACH TABLET PO PRN (19:36)
--- NOTE | 2016-11-12 20:00 | NUR ---
RN [facility] - NOTE - PT RECEIVED IN BED ON 2L O2 VIA N/C SATURATING @ 97%, TELE MONITORING BOX IN PLACE, NOTED WITH SINUS RHYTHM, HR 82. PT A/O X 2, DENIES PAIN AT THIS TIME. IV SITES PATENT, IV INFUSION OF NS @ 100 ML/HR, RECTAL TUBE AND PADRON CATHETER INTACT. PADRON CATHETER NOTED WITH YELLOW CLOUDY URINE OUTPUT, RECTAL TUBE BAG NOTED WITH LIQUID DARK BROWN FECAL MATTER. PT IS COMFORTABLE AT THIS TIME. CARE AND MONITORING TO BE CONTINUED. CL WITHIN REACHED AND SAFETY MAINTAINED.
--- NOTE | 2016-11-12 20:20 | NUR ---
DR RIVERA AT BEDSIDE TO ASSESS PT
[2016-11-12] MEDS: ZOLPIDEM TARTRATE 5 MG TABLET PO SCH (22:05)
[2016-11-13] VITALS: BP 99/56
[2016-11-13] MEDS: HYDROCODONE/APAP 5/325MG 1 EACH TABLET PO PRN (03:19)
[2016-11-13 04:00] VITALS: BP 105/50
[2016-11-13] MEDS: METRONIDAZOLE 500 MG TABLET PO SCH ×3 (05:20→21:33)
[2016-11-13 06:46] LABS: CALCIUM, SERUM 7.8 mg/dL (8.5-10.1); CARBON DIOXIDE 18 mmol/L (21-32); CHLORIDE 113 mmol/L (98-107); CREATININE 1.1 mg/dL (0.6-1.3); GLUCOSE 87 mg/dL (74-106); POTASSIUM 4.2 mmol/L (3.5-5.1); SODIUM SERUM 139 mmol/L (136-145); UREA NITROGEN, BLOOD 13 mg/dL (7-18)
[2016-11-13 07:40] LABS: BASOPHILS % (AUTO) 0.2 % (0.0-2.0); EOSINOPHILS # (AUTO) 0.1 /CMM (0.0-0.7); EOSINOPHILS % (AUTO) 1.3 % (0.0-6.0); HEMATOCRIT 27 % (33-45); HEMOGLOBIN 8.5 g/dL (11.5-14.8); LYMPHOCYTES # (AUTO) 0.9 /CMM (0.8-4.8); LYMPHOCYTES % (AUTO) 11.3 % (20.0-44.0); MEAN CORPUSCULAR HEMOGLOBIN 26 PG (26.0-33.0); MEAN CORPUSCULAR HGB CONC 32 g/dl (31.0-36.0); MEAN CORPUSCULAR VOLUME 83 fL (82-100); MONOCYTES # (AUTO) 0.4 /CMM (0.1-1.30); MONOCYTES % (AUTO) 4.6 % (2.0-12.0); NEUTROPHILS # (AUTO) 6.9 /CMM (1.8-8.9); NEUTROPHILS % (AUTO) 82.6 % (43.0-81.0); PLATELET COUNT (AUTO) 269 /CMM (150-450); RDW COEFFICIENT OF VARIATION 17.8 (11.5-15.0); RED BLOOD CELL COUNT(AUTO) 3.22 MIL/uL (4.0-5.2); WHITE BLOOD COUNT (AUTO) 8.3 K/uL (4.3-11.0)
--- NOTE | 2016-11-13 07:49 | NUR ---
RN NOTES PT RESTING COMFORTABLY IN BED A&O X2. ON NASAL CANNULA 2L, NO DISTRESS NOTED. SR ON THE TELE MONITOR HR 76. PADRON CATH DRAINING TO GRAVITY. RECTAL TUBE IN PLACE. OZRAN PICC LINE DRESSING DRY AND INTACT, NS RUNNING AT 100 ML/HR. R EJ 20 GAUGE IV SITE DRY AND INTACT.CALL LIGHT WITHIN REACH, BED LOCKED AND IN LOWEST POSITION. WILL CONT TO MONITOR.
[2016-11-13 08:00] VITALS: BP 110/60
[2016-11-13] MEDS: MESALAMINE 400 MG CAP PO SCH ×3 (08:12→16:20)
[2016-11-13] MEDS: PANTOPRAZOLE 40 MG VIAL IV SCH ×2 (08:12→21:33)
[2016-11-13] MEDS: ESCITALOPRAM OXALATE (10 MG) 10 MG TABLET PO SCH (08:13)
[2016-11-13] MEDS: GABAPENTIN 100 MG CAPSULE PO SCH ×3 (08:13→16:19)
[2016-11-13] MEDS: CLOTRIMAZOLE 1% 15 GM TUBE TP SCH ×2 (08:13→16:27)
[2016-11-13] MEDS: MULTIVITAMINS,THERAGRAN 1 UDTAB TABLET PO SCH (08:13)
[2016-11-13] MEDS: LEVOFLOXACIN 250 MG /D5W 50 ML 250 MG in PREMIX 1 EA IV SCH (10:22)
[2016-11-13 11:15] LABS: *ANCANTIMYELOPEROXIDASE (MPO) <9.0 U/mL (0.0-9.0); *ANCANTIPROTEINASE 3 (PR-3) AB <3.5 U/mL (0.0-3.5)
[2016-11-13] MEDS: IV NS 0.9% 1,000 ML IV PRN (12:58)
[2016-11-13 14:15] LABS: *ANCA ATYPICAL p-ANCA <1:20 titer (Neg:<1:20); *ANCA CYTOPLASMIC (C-ANCA) <1:20 titer (Neg:<1:20); *ANCA PERINUCLEAR (P-ANCA) <1:20 titer (Neg:<1:20)
[2016-11-13 16:00] VITALS: BP 99/49
--- NOTE | 2016-11-13 16:24 | NUR ---
MS RNTIO SPOKE WITY DR JACOBSON , NOTIFIED THAT BOTH UPPER EXTREMITIES WITH EDEMA PLUS 3 STATED OK TO CHANGE IVF TO 75 ML PER HOUR , ORDER CARRIED OUT
--- NOTE | 2016-11-13 16:25 | NUR ---
RN NOTES PT HAS 3+ BILATERAL EDEMA ON HANDS, NOTIFIED DR SANDOVAL. IVF RATE DECREASED TO 75ML/HR.
--- NOTE | 2016-11-13 18:34 | NUR ---
MS RN NOTE FED BY MERCHANDISE WORKER ,NOT IN ACUTE DISTRESS
--- NOTE | 2016-11-13 18:56 | NUR ---
RN NOTES PT RESTING COMFORTABLY IN BED. NO SIGNIFICANT CHANGES THROUGHOUT THE SHIFT. SATING AT 99% ON NASAL CANNULA, NO DISTRESS NOTED. ALL ORDERS AND NEEDS MET. CALL LIGHT WITHIN REACH, BED LOCKED AND IN LOWEST POSITION, SIDE RAILS UPX3.
--- NOTE | 2016-11-13 19:15 | NUR ---
RN OPEN NOTES RECEIVED PATIENT RESTING IN BED, EASILY AROUSABLE TO NAME. A/O X2. NO SIGNS OF DISTRESS OR DISCOMFORT. BREATHING EVEN AND UNLABORED. ON 2LPM O2 VIA NC. IV ACCESS IN REJ AND ZORAN PICC WITH NS INFUSING, PATENT AND INTACT, NO SIGNS OF REDNESS OR INFILTRATION. HAS RECTAL TUBE IN PLACE WITH LIQUIDY STOOL DRAINING. F/C PATENT AND INTACT WITH CLEAR YELLOW FLUID DRAINING. BED IN LOW LOCKED POSITION WITH SIDE RAILS X2. CALL LIGHT WITHIN REACH. WILL CONTINUE TO MONITOR.
--- NOTE | 2016-11-13 19:55 | NUR ---
RN NOTES PER FLORY IN PHARMACY OK TO GIVE SCHEDULED DOSE OF VANCO 500MG AT 1999. AWARE OF VANCO TROUGH OF 22.
[2016-11-13 20:00] VITALS: BP 113/64
[2016-11-13] MEDS: VANCOMYCIN 500 MG in IV D5W 100 ML IV SCH (20:29)
[2016-11-13 21:00] VITALS: BP 113/64
[2016-11-13] MEDS: ZOLPIDEM TARTRATE 5 MG TABLET PO SCH (21:34)
[2016-11-14] MEDS: HYDROCODONE/APAP 5/325MG 1 EACH TABLET PO PRN ×2 (01:13→08:34)
--- NOTE | 2016-11-14 01:13 | NUR ---
RN NOTES ADMINISTERED NORCO 5/325 ORDERED FOR ABD PAIN. VSS. WILL CONTINUE TO MONITOR.
[2016-11-14] MEDS: IV NS 0.9% 1,000 ML IV PRN (03:06)
[2016-11-14 04:00] VITALS: BP 122/59
[2016-11-14] MEDS: METRONIDAZOLE 500 MG TABLET PO SCH ×2 (04:27→12:21)
[2016-11-14 05:05] VITALS: BP 122/59
--- NOTE | 2016-11-14 06:51 | NUR ---
RN CLOSING NOTES PATIENT RESTING IN BED, EASILY AROUSABLE TO NAME. A/O X2-3. NO SIGNS OF DISTRESS OR DISCOMFORT. BREATHING EVEN AND UNLABORED. ON 2LPM O2 VIA NC. IV ACCESS IN REJ AND ZORAN PICC WITH NS INFUSING, PATENT AND INTACT, NO SIGNS OF REDNESS OR INFILTRATION. HAS RECTAL TUBE IN PLACE WITH LIQUIDY STOOL DRAINING. F/C PATENT AND INTACT WITH CLOUDY YELLOW FLUID DRAINING. ALL NEEDS MET. NO SIGNIFICANT CHANGES THROUGH THE NIGHT. REPOSITIONED Q2H. BED IN LOW LOCKED POSITION WITH SIDE RAILS X2. CALL LIGHT WITHIN REACH. WILL ENDORSE TO AM SHIFT FOR MARK.
[2016-11-14 06:58] LABS: BASOPHILS % (AUTO) 0.1 % (0.0-2.0); EOSINOPHILS # (AUTO) 0.1 /CMM (0.0-0.7); HEMATOCRIT 27 % (33-45); HEMOGLOBIN 8.5 g/dL (11.5-14.8); LYMPHOCYTES % (AUTO) 10.1 % (20.0-44.0); MEAN CORPUSCULAR HEMOGLOBIN 27 PG (26.0-33.0); MEAN CORPUSCULAR HGB CONC 32 g/dl (31.0-36.0); MEAN CORPUSCULAR VOLUME 83 fL (82-100); MONOCYTES # (AUTO) 0.5 /CMM (0.1-1.30); MONOCYTES % (AUTO) 5.5 % (2.0-12.0); NEUTROPHILS # (AUTO) 7.9 /CMM (1.8-8.9); NEUTROPHILS % (AUTO) 83.3 % (43.0-81.0); PLATELET COUNT (AUTO) 245 /CMM (150-450); RDW COEFFICIENT OF VARIATION 17.8 (11.5-15.0); RED BLOOD CELL COUNT(AUTO) 3.19 MIL/uL (4.0-5.2); WHITE BLOOD COUNT (AUTO) 9.5 K/uL (4.3-11.0)
[2016-11-14 07:24] LABS: CALCIUM, SERUM 7.7 mg/dL (8.5-10.1); CARBON DIOXIDE 18 mmol/L (21-32); CHLORIDE 112 mmol/L (98-107); GLUCOSE 90 mg/dL (74-106); POTASSIUM 3.9 mmol/L (3.5-5.1); SODIUM SERUM 140 mmol/L (136-145); UREA NITROGEN, BLOOD 10 mg/dL (7-18)
[2016-11-14 08:00] VITALS: BP 131/73
[2016-11-14] MEDS: MESALAMINE 400 MG CAP PO SCH ×3 (08:29→16:54)
[2016-11-14] MEDS: PANTOPRAZOLE 40 MG VIAL IV SCH (08:30)
[2016-11-14] MEDS: ESCITALOPRAM OXALATE (10 MG) 10 MG TABLET PO SCH (08:30)
[2016-11-14] MEDS: GABAPENTIN 100 MG CAPSULE PO SCH ×3 (08:30→16:55)
[2016-11-14] MEDS: MULTIVITAMINS,THERAGRAN 1 UDTAB TABLET PO SCH (08:31)
[2016-11-14] MEDS: CLOTRIMAZOLE 1% 15 GM TUBE TP SCH ×2 (08:35→16:56)
[2016-11-14] MEDS ORDERED: LEVOFLOXACIN (250MG) 250 MG TABLET PO SCH (09:00)
--- NOTE | 2016-11-14 12:39 | NUR ---
RN NOTES PT HAD 10% MEAL CONSUMED FOR BREAKFAST, AND 10% FOR LUNCH. ENCOURAGE THE PT TO EAT MORE BUT REFUSED. SWALLOW EVAL ORDERED, AND WILL CONTINUE TO MONITOR.
[2016-11-14 16:00] VITALS: BP 124/62
[2016-11-14] MEDS ORDERED: METR500T PO (16:59)
[2016-11-14] MEDS ORDERED: VANC500F2 IV (16:59)
[2016-11-14] MEDS ORDERED: RISP0.253 PO (16:59)
[2016-11-14] MEDS ORDERED: LEVO250T2 PO (16:59)
[2016-11-14] MEDS ORDERED: Mesalamine PO (16:59)
[2016-11-14] MEDS ORDERED: RXVAN XX (16:59)
[2016-11-14] MEDS ORDERED: NUT.237L70 PO (16:59)
--- NOTE | 2016-11-14 18:09 | NUR ---
REPORT GIVEN TO JUANA KAY, [facility] [employer]. EXPECTED TIME OF PICK IS 183.
--- NOTE | 2016-11-14 18:55 | NUR ---
RN CLOSING NOTES PT IS GETTING DISCHARGED, WAITING FOR IT SALES REPRESENTATIVE. PT IS IN BED AND RESTING, NO RESPIRATORY DISTRESS NOTED, PT KEPT CLEAN AND DRY, PICTURES TAKEN AND FILED IN THE CHART. FLEXISEAL DISCONTINUED. ZORAN MIDLINE IS STILL IN PLACE. NO S/SX OF INFECTION/INFILTRATION NOTED. ALL MEDS GIVEN ORDERED AND PT TOLERATED IT WELL. REPORT GIVEN TO EMT. PT IS IN STABLE CONDITION.
== END 2016-11-14 19:30 | DRG 871 ==
LOC: ER 19:04 → TELE-TD 22:13 → ICU 23:13 → TELE-TD 11-12 15:16 → TELE1 11-13 10:11 → MEDSG1 11-13 10:57
PROVIDERS: ADMIT Family Medicine; ATTEND Family Medicine
PROC: 05H633Z Insertion of Infusion Device into Left Subclavian Vein, Percutaneous Approach (ICD-10-PCS; 2016-11-04)
PROC: 02HV33Z Insertion of Infusion Device into Superior Vena Cava, Percutaneous Approach (ICD-10-PCS; 2016-11-05)
PROC: B548ZZA Ultrasonography of Superior Vena Cava, Guidance (ICD-10-PCS; 2016-11-05)
PROC: 30233N1 Transfusion of Nonautologous Red Blood Cells into Peripheral Vein, Percutaneous Approach (ICD-10-PCS; principal; 2016-11-10)
DX: A41.9 Sepsis, unspecified organism (principal); N17.0 Acute kidney failure with tubular necrosis; R65.21 Severe sepsis with septic shock; E43 Unspecified severe protein-calorie malnutrition; G92 Toxic encephalopathy; I12.0 Hypertensive chronic kidney disease with stage 5 chronic kidney disease or end stage renal disease; K55.9 Vascular disorder of intestine, unspecified; I31.3 Pericardial effusion (noninflammatory); F03.90 Unspecified dementia, unspecified severity, without behavioral disturbance, psychotic disturbance, mood disturbance, and anxiety; K51.90 Ulcerative colitis, unspecified, without complications; N39.0 Urinary tract infection, site not specified; Z68.1 Body mass index [BMI] 19.9 or less, adult; N18.5 Chronic kidney disease, stage 5; E87.1 Hypo-osmolality and hyponatremia; J98.11 Atelectasis; I27.2 Other secondary pulmonary hypertension; M41.9 Scoliosis, unspecified; J44.9 Chronic obstructive pulmonary disease, unspecified; Z88.1 Allergy status to other antibiotic agents; Z88.0 Allergy status to penicillin; Z87.891 Personal history of nicotine dependence; Z87.11 Personal history of peptic ulcer disease; M19.90 Unspecified osteoarthritis, unspecified site; K44.9 Diaphragmatic hernia without obstruction or gangrene; K42.9 Umbilical hernia without obstruction or gangrene; K08.89 Other specified disorders of teeth and supporting structures; J98.01 Acute bronchospasm; I25.10 Atherosclerotic heart disease of native coronary artery without angina pectoris; F32.9 Major depressive disorder, single episode, unspecified; F20.9 Schizophrenia, unspecified; F41.9 Anxiety disorder, unspecified; G89.29 Other chronic pain; E87.5 Hyperkalemia; D63.8 Anemia in other chronic diseases classified elsewhere; Z98.890 Other specified postprocedural states; K52.9 Noninfective gastroenteritis and colitis, unspecified; B96.20 Unspecified Escherichia coli [E. coli] as the cause of diseases classified elsewhere; E66.01 Morbid (severe) obesity due to excess calories; E83.51 Hypocalcemia; I70.0 Atherosclerosis of aorta; K21.9 Gastro-esophageal reflux disease without esophagitis; D53.9 Nutritional anemia, unspecified
CPT/HCPCS: 36415; 71010-TC; 71250-TC; 74000-TC; 80048-TC; 80053-TC; 80061-TC; 80074; 80076-TC; 80202-TC; 81000-TC; 82272-TC; 82533; 82728-TC; 83520; 83540-TC; 83605-TC; 83690-TC; 83735-TC; 84100-TC; 84484-TC; 85025-TC; 85027-TC; 85730-TC; 86256; 86850-TC; 86921-TC; 87040-TC; 87045-TC; 87081-TC; 87086-TC; 87177; 87186-TC; 87209; 89055; 94799-TC; A4216; A4606; C1751; C1769; C9113; J1956; J2405; J3370; J3475; J3480; J3490; J7030; J7050; J7060; P9016-BL; Z7610

== ENCOUNTER 2016-11-23 12:46 | Inpatient (IN) | payer MEDICARE, OTHER ==
[~2016-11-23] VITALS: Ht 152.4 cm; Wt 68.0 kg
[~2016-11-23 12:46] MED LIST changes: -DOCU-25 PO; +LEVO250T2 PO; -MAG30ORA PO; -MAGN400O6 PO; -METO25TA6 PO; +METR500T PO; +Mesalamine PO; +NUT.237L70 PO; +RISP0.253 PO; +RXVAN XX; -SENN8.6T6 PO; +VANC500F2 IV
--- NOTE | 2016-11-23 12:55 | NUR ---
PATIENT BIB [facility] FOR EVALUATION AND TREATMENT OF ANEMIA FROM [facility]. PATIENT IS A/OX 3. BREATHING EVEN AND UNLABORED. NO SOB. VITALS STABLE. PATIENT HAS PICC LINE ON LEFT UPPER ARM FROM SNF. NO COMPLICATIONS NOTED. SAFEY AND COMFORT MEASURSE IN PLACE. AWAITING MD ORDERS.
[2016-11-23 13:21] LABS: BASOPHILS % (AUTO) 0.4 % (0.0-2.0); EOSINOPHILS # (AUTO) 0.2 /CMM (0.0-0.7); EOSINOPHILS % (AUTO) 2.7 % (0.0-6.0); HEMATOCRIT 22 % (33-45); HEMOGLOBIN 7.1 g/dL (11.5-14.8); LYMPHOCYTES # (AUTO) 0.9 /CMM (0.8-4.8); LYMPHOCYTES % (AUTO) 14.4 % (20.0-44.0); MEAN CORPUSCULAR HEMOGLOBIN 26 PG (26.0-33.0); MEAN CORPUSCULAR HGB CONC 32 g/dl (31.0-36.0); MEAN CORPUSCULAR VOLUME 81 fL (82-100); MONOCYTES # (AUTO) 0.6 /CMM (0.1-1.30); MONOCYTES % (AUTO) 9.1 % (2.0-12.0); NEUTROPHILS # (AUTO) 4.7 /CMM (1.8-8.9); NEUTROPHILS % (AUTO) 73.4 % (43.0-81.0); PLATELET COUNT (AUTO) 455 /CMM (150-450); RDW COEFFICIENT OF VARIATION 19.3 (11.5-15.0); RED BLOOD CELL COUNT(AUTO) 2.75 MIL/uL (4.0-5.2); WHITE BLOOD COUNT (AUTO) 6.4 K/uL (4.3-11.0)
[2016-11-23 13:31] LABS: CALCIUM, SERUM 7.7 mg/dL (8.5-10.1); CARBON DIOXIDE 28 mmol/L (21-32); CHLORIDE 108 mmol/L (98-107); CREATININE 0.9 mg/dL (0.6-1.3); GLUCOSE 99 mg/dL (74-106); POTASSIUM 3.3 mmol/L (3.5-5.1); SODIUM SERUM 142 mmol/L (136-145); UREA NITROGEN, BLOOD 5 mg/dL (7-18)
[2016-11-23 13:35] LABS: INR 1.11 (0.87-1.13); PROTHROMBIN TIME 11.6 SECS (9.5-12.7)
--- NOTE | 2016-11-23 13:45 | NUR ---
REPORT GIVEN TO MELIDA KAY FOR ADMISSION.
[2016-11-23] MEDS ORDERED: RISP0.2515 PO (14:01)
[2016-11-23] MEDS ORDERED: MESA400C2 PO (14:01)
[2016-11-23] MEDS ORDERED: ASCO500T9 PO (14:01)
[2016-11-23] MEDS ORDERED: ESCI10TA PO (14:02)
--- NOTE | 2016-11-23 14:14 | NUR ---
PATIENT TRANSPORTED TO [facility] VIA STRETCHER WITH EMT FOR ADMISSION. RN, MELIDA TO PROVIDE MARK.
--- NOTE | 2016-11-23 14:30 | NUR ---
PATIENT ARRIVED TO UNIT. WILL MONITOR AND ASSESS PATIENT.
[2016-11-23] MEDS ORDERED: MAGNESIUM HYDROXIDE 30 ML UDC PO PRN (15:30)
[2016-11-23] MEDS ORDERED: ZOLPIDEM TARTRATE 5 MG TABLET PO PRN (15:30)
[2016-11-23] MEDS ORDERED: MAG HYDROX/AL HYDROX/SIMETH 30 ML UDC PO PRN (15:30)
[2016-11-23] MEDS ORDERED: ACETAMINOPHEN 325 MG TABLET PO PRN (15:30)
[2016-11-23] MEDS ORDERED: ONDANSETRON HCL/PF 4 MG/2 ML VIAL IVP PRN (15:30)
[2016-11-23] MEDS ORDERED: Z GUARD REMEDY 2 OZ OINT TP PRN (15:30)
[2016-11-23] MEDS ORDERED: MENTHOL/CETYLPYRD (CEPACOL) 1 LOZ LOZENGE MM PRN (15:30)
[2016-11-23 16:00] VITALS: BP 125/67
--- NOTE | 2016-11-23 16:00 | NUR ---
RN ADMITTING NOTES PATIENT ARRIVED TO UNIT FROM EMERGENCY ROOM. NEW ORDERS RECEIVED FROM ADMITTING MD. PATIENT IS ON 3L NC OXYGEN AND SATURATING AT 96%. NO SIGNS AND SYMPTOMS OF DISTRESS. PATIENT COMPLAINS OF HEADACHE, TYLENOL 650MG ADMINISTERED. PICTURES WERE TAKEN AND PLACED IN THE CHART. GROIN, BUTTOCKS, SACRUM, AND PERINEUM REDNESS NOTED. PATIENT HAS A PICC LINE FROM [facility], PICC LINE IS INTACT AND PATENT. WILL CONTINUE TO MONITOR AND ASSESS PATIENT THROUGH OUT MY SHIFT
--- NOTE | 2016-11-23 17:00 | NUR ---
PADDY NORMAN FROM [facility] EVALUATE PATIENT REDNESS AT THE GROIN, BUTTOCKS, SACRUM AND PERINUEM.
[2016-11-23] MEDS: MESALAMINE 400 MG CAP PO SCH (17:12)
[2016-11-23] MEDS: GABAPENTIN 100 MG CAPSULE PO SCH (17:12)
--- NOTE | 2016-11-23 17:50 | NUR ---
CALLED PHARMACY REGARDING LOW POTASSIUM LEVEL OF 3.3. DR SANDOVAL STATED IN HIS NOTES THAT REPLACEMENT IS NEEDED BUT ORDERS ARE NOT IN. PHARMACY WILL REPLACE POTASSIUM
[2016-11-23] MEDS: NYSTATIN/TRIAMCIN CREAM 15 GM TUBE TP SCH (18:00)
[2016-11-23] MEDS ORDERED: POTASSIUM CHLORIDE 20 MEQ TAB.PRT.SR PO ONE (18:30)
--- NOTE | 2016-11-23 18:31 | NUR ---
POTASSIUM REPLACED PER PHARMACY ORDER
--- NOTE | 2016-11-23 18:31 | NUR ---
MYCOLOG IS NOT YET DELIVERED BY PHARMACY. WILL ENDORSE TO METALLURGICAL ENGINEER NURSE
[2016-11-23] MEDS: HYDROCODONE/APAP 5/325MG 1 EACH TABLET PO PRN (18:44)
--- NOTE | 2016-11-23 18:45 | NUR ---
PATIENT COMPLAINS OF BURNING SENSATION IN THE BUTTOCKS AREA. NORCO ADMINISTERED ORDERED. BLOOD PRESSURE 125/67
--- NOTE | 2016-11-23 18:47 | NUR ---
RN CLOSING NOTES PATIENT IS IN BED, ALERT AND ORIENTED TO NAME, PLACE AND TIME. PERIOD OF CONFUSION NOTED. BED IN LOW POSITION, LOCKED AND TWO SIDE RAILS ARE UP. POTASSIUM LEVEL OF 3.3, POTASSIUM REPLACED. LOW H&H, 7.04/15 RESPECTFULLY; PER DR SANDOVAL, NO NEED TO TRANSFUSE UNLESS PATIENT IS SYMPTOMATIC. OCCULT BLOOD STOOL SPECIMEN IS PENDING FOR COLLECTION. WILL ENDORSE TO ATTENDING ANESTHESIOLOGIST NURSE.
[2016-11-23 18:59] LABS: THYROID STIMULATING HORMONE 4.929 uIU/mL (0.358-3.74); URIC ACID 3.3 mg/dL (2.6-7.2)
--- NOTE | 2016-11-23 19:30 | NUR ---
MS RN NOTES RECEIVED PT IN BED, AWAKE, A/0 X 2. NO DISTRESS, NO SOB NOTED. ON 02 @ 2LPM VIA NC KAT WELL. 02 SAT IS 95 % AT THIS TIME. ZORAN PICC LINE INTACT AND PATENT . NO S/S OF INFECTION NOR INFILTRATION NOTED. DENIES ANY PAIN OR DISCOMFORT AT THIS TIME. ALL NEEDS ATTENDED. SAFETY PRECAUTIONS OBSERVED. CALL LIGHT WITHIN REACH. NEEDS TO COLLECT STOOL FOR OB PT WITH NO BM AT THIS TIME. WILL CONT TO MONITOR.
[2016-11-23 20:00] VITALS: BP_SYST 100; BP_SYST 99; BP_DIAS 52; BP_DIAS 59
[2016-11-23 21:11] LABS: RETICULOCYTE COUNT 2.1 % (0.6-2.5)
[2016-11-23] MEDS: risperiDONE 0.25 MG TABLET PO SCH (21:50)
[2016-11-23] MEDS: ZOLPIDEM TARTRATE 5 MG TABLET PO SCH (21:55)
[2016-11-24] VITALS (7 sets, daily range): BP systolic 110–133; BP diastolic 59–79
--- NOTE | 2016-11-24 06:47 | NUR ---
MS RN NOTES PT IN BED, RESTING COMFORTABLY AT THIS TIME, AROUSES EASILY. A/0 X 2. NO DISTRESS, NO SOB NOTED. ON 02 @ 2LPM VIA NC KAT WELL. DENIES ANY PAIN OR DISCOMFORT AT THIS TIME. ALL NEEDS ATTENDED AND MET. SAFETY PRECAUTIONS OBSERVED. CALL LIGHT WITHIN REACH. WILL ENDORSE TO NEXT SHIFT FOR MARK.
--- NOTE | 2016-11-24 07:30 | NUR ---
AM RN NOTE Received patient sleeping comfortably in her bed, On O2 2L/min via NC. Resp even and non-labored. PICC line on ZORAN intact and patent. Bed in low locked position. Will continue to monitor.
[2016-11-24 07:32] LABS: BASOPHILS % (AUTO) 0.3 % (0.0-2.0); EOSINOPHILS # (AUTO) 0.2 /CMM (0.0-0.7); EOSINOPHILS % (AUTO) 4.6 % (0.0-6.0); HEMATOCRIT 21 % (33-45); LYMPHOCYTES # (AUTO) 0.7 /CMM (0.8-4.8); LYMPHOCYTES % (AUTO) 14.2 % (20.0-44.0); MEAN CORPUSCULAR HEMOGLOBIN 26 PG (26.0-33.0); MEAN CORPUSCULAR HGB CONC 31 g/dl (31.0-36.0); MEAN CORPUSCULAR VOLUME 83 fL (82-100); MONOCYTES # (AUTO) 0.5 /CMM (0.1-1.30); MONOCYTES % (AUTO) 10.2 % (2.0-12.0); NEUTROPHILS # (AUTO) 3.3 /CMM (1.8-8.9); NEUTROPHILS % (AUTO) 70.7 % (43.0-81.0); PLATELET COUNT (AUTO) 389 /CMM (150-450); RDW COEFFICIENT OF VARIATION 20.7 (11.5-15.0); RED BLOOD CELL COUNT(AUTO) 2.53 MIL/uL (4.0-5.2); WHITE BLOOD COUNT (AUTO) 4.7 K/uL (4.3-11.0)
[2016-11-24 07:45] LABS: HEMOGLOBIN 6.6 g/dL (11.5-14.8)
--- NOTE | 2016-11-24 08:14 | NUR ---
AM RN NOTE Received call from Lab with Hgb [address] Fontanez made aware about results with new order to transfuse 1 unit PRBC. Called Silvia Muñoz (DPOA) gave consent for blood transfusion over the phone as witnessed by another RN. Orders placed. Patient awake, denies any pain or discomfort at this time. V/S BP119/68 T97.9 P96 R20 PA0/10 O2 sat 95% at RA. Will continue to monitor.
[2016-11-24] MEDS: PANTOPRAZOLE 40 MG TABLET.DR PO SCH (08:33)
[2016-11-24] MEDS: MULTIVIT, IRON, MIN NO. 8, FA 1 TAB PO SCH (08:34)
[2016-11-24] MEDS: MESALAMINE 400 MG CAP PO SCH ×3 (08:34→17:35)
[2016-11-24] MEDS: ESCITALOPRAM OXALATE (10 MG) 10 MG TABLET PO SCH (08:34)
[2016-11-24] MEDS: GABAPENTIN 100 MG CAPSULE PO SCH ×3 (08:34→17:34)
--- NOTE | 2016-11-24 08:45 | NUR ---
VAL KINSEY Spoke with Jacob (Pharmacist) to deliver Mycolog cream for patients. Spoke with Mackenzie at lab, processing 1 unit of PRBC.
[2016-11-24 09:25] LABS: CALCIUM, SERUM 7.5 mg/dL (8.5-10.1); CARBON DIOXIDE 27 mmol/L (21-32); CHLORIDE 111 mmol/L (98-107); CREATININE 1.1 mg/dL (0.6-1.3); GLUCOSE 111 mg/dL (74-106); MAGNESIUM 1.6 mg/dL (1.8-2.4); POTASSIUM 3.7 mmol/L (3.5-5.1); SODIUM SERUM 146 mmol/L (136-145); UREA NITROGEN, BLOOD 6 mg/dL (7-18)
--- NOTE | 2016-11-24 09:45 | NUR ---
AM RN NOTE DR. Pagan did his rounds made aware about new order from Dr. Fontanez for 1 unit PRBC. Stool for OB collected and sample placed in fridge.
[2016-11-24 09:58] LABS: EOSINOPHILS % (MANUAL) 2 % (0-4); LYMPHOCYTES % (MANUAL) 14 % (16-48); MONOCYTES % (MANUAL) 5 % (0-11.0); NEUTROPHILS % (MANUAL) 79 (42-76)
--- NOTE | 2016-11-24 10:30 | NUR ---
AM RN NOTE V/S BP120/71 T97.6 P80 R20 PA0/10 O2 sat 95% at RA. Blood transfusion initiated @75ml/hr at this time. Will continue to monitor. RN at bedside.
[2016-11-24] MEDS: NYSTATIN/TRIAMCIN CREAM 15 GM TUBE TP SCH ×2 (12:20→17:36)
--- NOTE | 2016-11-24 14:26 | NUR ---
AM RN NOTE Blood transfusion 1 unit PRB completed. Pt awake, denies any pain or discomfort at this time. Will continue to monitor. V/S BP113/66 T97.1 P69 R20 PA0/10
[2016-11-24] MEDS: SOD FERRIC GLUC 125 MG in IV NS 0.9% 100 ML IV SCH (15:12)
--- NOTE | 2016-11-24 18:14 | NUR ---
AM RN NOTE Pt resting in her bed, no acute distress noted. On O2 2L/min via NC O2 96%. Lab orders placed for tomorrow (CBC, BMP). Will continue to monitor and endorse care to next shift.
[2016-11-24] MEDS: Magnesium 1GM/D5W 100ML PREMIX 100 ML IV SCH ×2 (19:54→20:52)
[2016-11-24] MEDS: ACETAMINOPHEN 325 MG TABLET PO PRN (20:04)
--- NOTE | 2016-11-24 20:08 | NUR ---
MS/RN PATIENT IS AWAKE, ALERT, ORIENTED, COMFORTABLE, C/O HEADACHE, MEDICATED WITH TYLENOL 650 MG PO WAS ORDERED. WILL MONITOR. FALL PRECAUTION.
--- NOTE | 2016-11-24 20:53 | NUR ---
MS/RN PATIENT IS SLEEPING AT THIS TIME, AROUSABLE, APPEAR COMFORTABLE, NO DISTRESS NOTED, CALL LIGHT IN REACH. WILL CONTINUE TO MONITOR.
[2016-11-24] MEDS: ZOLPIDEM TARTRATE 5 MG TABLET PO SCH (22:00)
[2016-11-24] MEDS: risperiDONE 0.25 MG TABLET PO SCH (22:00)
--- NOTE | 2016-11-25 06:26 | NUR ---
MS/RN PATIENT IS AWAKE, COMFORTABLE, NO C/O PAIN, NO CHANGE IN CONDITION. ALL NEEDS ATTENDED AT THIS TIME. WILL CONTINUE TO MONITOR.
--- NOTE | 2016-11-25 07:30 | NUR ---
AM RN NOTE Received patient awake, A/O X3 verbally responsive. On O2 2L/min via NC. Denies any pain or discomfort at this time. PICC line on ZORAN intact and patent. Bed in low locked position. Will continue to monitor.
[2016-11-25 07:33] LABS: BASOPHILS % (AUTO) 0.1 % (0.0-2.0); EOSINOPHILS # (AUTO) 0.3 /CMM (0.0-0.7); EOSINOPHILS % (AUTO) 5.4 % (0.0-6.0); HEMATOCRIT 25 % (33-45); HEMOGLOBIN 8.1 g/dL (11.5-14.8); LYMPHOCYTES # (AUTO) 0.7 /CMM (0.8-4.8); LYMPHOCYTES % (AUTO) 13.4 % (20.0-44.0); MEAN CORPUSCULAR HEMOGLOBIN 27 PG (26.0-33.0); MEAN CORPUSCULAR HGB CONC 33 g/dl (31.0-36.0); MEAN CORPUSCULAR VOLUME 82 fL (82-100); MONOCYTES # (AUTO) 0.5 /CMM (0.1-1.30); MONOCYTES % (AUTO) 10.9 % (2.0-12.0); NEUTROPHILS # (AUTO) 3.4 /CMM (1.8-8.9); NEUTROPHILS % (AUTO) 70.2 % (43.0-81.0); PLATELET COUNT (AUTO) 407 /CMM (150-450); RDW COEFFICIENT OF VARIATION 18.7 (11.5-15.0); RED BLOOD CELL COUNT(AUTO) 3.03 MIL/uL (4.0-5.2); WHITE BLOOD COUNT (AUTO) 4.9 K/uL (4.3-11.0)
[2016-11-25 08:00] VITALS: BP 147/89
[2016-11-25 08:04] LABS: CALCIUM, SERUM 7.7 mg/dL (8.5-10.1); CARBON DIOXIDE 30 mmol/L (21-32); CHLORIDE 109 mmol/L (98-107); CREATININE 0.8 mg/dL (0.6-1.3); GLUCOSE 90 mg/dL (74-106); MAGNESIUM 2.1 mg/dL (1.8-2.4); POTASSIUM 3.5 mmol/L (3.5-5.1); SODIUM SERUM 144 mmol/L (136-145); UREA NITROGEN, BLOOD 5 mg/dL (7-18)
[2016-11-25] MEDS: PANTOPRAZOLE 40 MG TABLET.DR PO SCH (08:05)
[2016-11-25] MEDS: ESCITALOPRAM OXALATE (10 MG) 10 MG TABLET PO SCH (08:05)
[2016-11-25] MEDS: MESALAMINE 400 MG CAP PO SCH ×3 (08:05→16:22)
[2016-11-25] MEDS: GABAPENTIN 100 MG CAPSULE PO SCH ×3 (08:05→16:21)
[2016-11-25] MEDS: MULTIVIT, IRON, MIN NO. 8, FA 1 TAB PO SCH (08:05)
[2016-11-25] MEDS: NYSTATIN/TRIAMCIN CREAM 15 GM TUBE TP SCH ×2 (08:06→16:22)
[2016-11-25 08:19] VITALS: BP 147/89
[2016-11-25 12:00] VITALS: BP 143/78
[2016-11-25] MEDS: SOD FERRIC GLUC 125 MG in IV NS 0.9% 100 ML IV SCH (14:29)
--- NOTE | 2016-11-25 18:13 | NUR ---
AM RN NOTE Patient resting in her bed, no acute distress noted. Will continue to monitor and endorse care to next shift.
--- NOTE | 2016-11-25 19:25 | NUR ---
MS/RN OPENING NOTES PT AWAKE, SITTING UP IN BED AND FINISHING DINNER. ON 2LPM O2 VIA NC, BREATHING EVEN AND UNLABORED. DENIES SOB OR PAIN AT THIS TIME. NO S/S OF DISTRESS. A/OX3. ZORAN PICC LINE PATENT AND INTACT. NO ACTIVE SIGNS OF BLEEDING. BED IN LOW/LOCKED POSITION ,CALL LIGHT IN REACH. SIDE RAILS UPX2 AND BED ALARM ON FOR SAFETY. WILL CONTINUE TO MONITOR
[2016-11-25 20:00] VITALS: BP 135/70
[2016-11-25] MEDS: HYDROCODONE/APAP 5/325MG 1 EACH TABLET PO PRN (21:10)
--- NOTE | 2016-11-25 21:11 | NUR ---
MS/RN NOTES PT COMPLAINING OF ACHING ABDOMINAL PAIN 7-11/01. ADMINISTERED PRN NORCO ORDERED. PULLED PT UP IN THE BED AND ASSISTED WITH REPOSITIONING. WILL MONITOR FOR EFFECTIVENESS
[2016-11-25] MEDS: ZOLPIDEM TARTRATE 5 MG TABLET PO SCH (22:00)
[2016-11-25] MEDS: risperiDONE 0.25 MG TABLET PO SCH (22:32)
--- NOTE | 2016-11-26 07:09 | NUR ---
MS/RN CLOSING NOTES PT AWAKE, A/OX2-3, FORGETFUL. ON 2LPM O2 VIA NC, BREATHING EVEN AND UNLABORED. NO S/S OF DISTRESS, DENIES SOB OR PAIN AT THIS TIME. ZORAN PICC LINE PATENT AND INTACT. TURNED/REPOSITIONED Q2H, EXTREMITIES OFFLOADED. MADE PT COMFORTABLE DURING SHIFT. ALL NEEDS MET AND ATTENDED. BED IN LOW/LOCKED POSITION, CALL LIGHT IN REACH. SIDE RAILS UPX2. WILL ENDORSE TO AM SHIFT MARK.
--- NOTE | 2016-11-26 07:20 | NUR ---
RN MS NOTES PATIENT ALERT AND ORIENTED, BREATHING EVEN AND UNLABORED, NO DISTRESS NOTED, DENIES PAIN OR DISCOMFORT, PIV PATENT AND FLUSHES WELL, ALL NEEDS ATTENDED AND ANTICIPATED, CALL LIGHT WITHIN REACH, BED LOW AND LOCKED, SIDERAILS X2 UP, WILL CONTINUE TO MONITOR.
[2016-11-26 08:00] VITALS: BP 129/75
[2016-11-26] MEDS: PANTOPRAZOLE 40 MG TABLET.DR PO SCH (08:25)
[2016-11-26] MEDS: GABAPENTIN 100 MG CAPSULE PO SCH ×3 (08:25→16:46)
[2016-11-26] MEDS: ESCITALOPRAM OXALATE (10 MG) 10 MG TABLET PO SCH (08:25)
[2016-11-26] MEDS: MULTIVIT, IRON, MIN NO. 8, FA 1 TAB PO SCH (08:25)
[2016-11-26] MEDS: NYSTATIN/TRIAMCIN CREAM 15 GM TUBE TP SCH ×2 (08:27→16:48)
[2016-11-26] MEDS: MESALAMINE 400 MG CAP PO SCH ×3 (08:27→16:46)
[2016-11-26 09:03] LABS: BASOPHILS % (AUTO) 0.1 % (0.0-2.0); EOSINOPHILS # (AUTO) 0.2 /CMM (0.0-0.7); EOSINOPHILS % (AUTO) 3.7 % (0.0-6.0); HEMATOCRIT 28 % (33-45); LYMPHOCYTES # (AUTO) 0.8 /CMM (0.8-4.8); MEAN CORPUSCULAR HEMOGLOBIN 27 PG (26.0-33.0); MEAN CORPUSCULAR HGB CONC 32 g/dl (31.0-36.0); MEAN CORPUSCULAR VOLUME 83 fL (82-100); MONOCYTES # (AUTO) 0.5 /CMM (0.1-1.30); NEUTROPHILS # (AUTO) 3.7 /CMM (1.8-8.9); NEUTROPHILS % (AUTO) 72.2 % (43.0-81.0); PLATELET COUNT (AUTO) 437 /CMM (150-450); RDW COEFFICIENT OF VARIATION 19.5 (11.5-15.0); RED BLOOD CELL COUNT(AUTO) 3.37 MIL/uL (4.0-5.2); WHITE BLOOD COUNT (AUTO) 5.1 K/uL (4.3-11.0)
[2016-11-26] MEDS: HYDROCODONE/APAP 5/325MG 1 EACH TABLET PO PRN (09:11)
[2016-11-26 09:53] LABS: ALANINE AMINOTRANSFERASE 17 U/L (12-78); ALBUMIN 1.7 g/dL (3.4-5.0); ALKALINE PHOSPHATASE 73 U/L (46-116); ASPARTATE AMINOTRANSFERASE 18 U/L (15-37); BILIRUBIN,TOTAL 0.2 mg/dL (0.2-1.0); CALCIUM, SERUM 7.7 mg/dL (8.5-10.1); CARBON DIOXIDE 31 mmol/L (21-32); CHLORIDE 108 mmol/L (98-107); CREATININE 1.1 mg/dL (0.6-1.3); GLUCOSE 120 mg/dL (74-106); MAGNESIUM 1.8 mg/dL (1.8-2.4); POTASSIUM 3.7 mmol/L (3.5-5.1); SODIUM SERUM 144 mmol/L (136-145); TOTAL PROTEIN, SERUM 6.1 g/dL (6.4-8.2); UREA NITROGEN, BLOOD 6 mg/dL (7-18)
[2016-11-26] MEDS: SOD FERRIC GLUC 125 MG in IV NS 0.9% 100 ML IV SCH (13:22)
[2016-11-26 16:00] VITALS: BP 118/67
--- NOTE | 2016-11-26 18:25 | NUR ---
RN MS NOTES PATIENT ALERT AND ORIENTED, NO DISTRESS NOTED, ATE SOME DINNER, DENIES PAIN AT THIS TIME, TURNED AND REPOSITIONED EVERY 2 HOURS, WOUND TREATMENT RENDERED, STILL NOTED WITH REDNESS ON BUTTOCKS AND GROIN AREA, ZORAN PICC PATENT AND FLUSHES WELL, ALL NEEDS ATTENDED AND MET, CALL LIGHT WITHIN REACH, WILL ENDORSE TO CHIEF CREATIVE OFFICER FOR MARK.
--- NOTE | 2016-11-26 19:40 | NUR ---
MS RN NOTE RECEIVED PATIENT FROM DAY SHIFT, PATIENT IS ALERT AND ORIENTEDX2-3, DENIES RESPIRATORY DISTRESS OR PAIN AT THIS TIME, RESTING IN BED COMFORTABLY. LEFT UPPER ARM PICC IS PATENT AND INTACT, HL ONLY. SRX2, BED IN LOW POSITION, CALL LIGHT WITHIN REACH, WILL CONTINUE TO MONITOR PATIENT.
[2016-11-26 20:00] VITALS: BP 111/46
[2016-11-26] MEDS: ZOLPIDEM TARTRATE 5 MG TABLET PO SCH (21:34)
[2016-11-26] MEDS: risperiDONE 0.25 MG TABLET PO SCH (21:34)
[2016-11-27 02:07] LABS: HAPTOGLOBIN 253 mg/dL (34-200)
[2016-11-27] MEDS: HYDROCODONE/APAP 5/325MG 1 EACH TABLET PO PRN (06:33)
--- NOTE | 2016-11-27 06:56 | NUR ---
MS RN NOTE PATIENT IS RESTING IN BED COMFORTABLY, NO S/S OF RESPIRATORY DISTRESS OR PAIN AT THIS TIME. PICC LINE ON LEFT UPPER ARM IS PATENT AND INTACT, HL ONLY. WILL ENDORSE TO DAY SHIFT FOR MARK.
[2016-11-27 07:09] LABS: BASOPHILS % (AUTO) 0.4 % (0.0-2.0); EOSINOPHILS # (AUTO) 0.2 /CMM (0.0-0.7); EOSINOPHILS % (AUTO) 4.9 % (0.0-6.0); HEMATOCRIT 24 % (33-45); HEMOGLOBIN 7.7 g/dL (11.5-14.8); LYMPHOCYTES # (AUTO) 0.7 /CMM (0.8-4.8); LYMPHOCYTES % (AUTO) 16.2 % (20.0-44.0); MEAN CORPUSCULAR HEMOGLOBIN 27 PG (26.0-33.0); MEAN CORPUSCULAR HGB CONC 32 g/dl (31.0-36.0); MEAN CORPUSCULAR VOLUME 84 fL (82-100); MONOCYTES # (AUTO) 0.5 /CMM (0.1-1.30); MONOCYTES % (AUTO) 12.2 % (2.0-12.0); NEUTROPHILS # (AUTO) 2.7 /CMM (1.8-8.9); NEUTROPHILS % (AUTO) 66.3 % (43.0-81.0); PLATELET COUNT (AUTO) 378 /CMM (150-450); RDW COEFFICIENT OF VARIATION 19.2 (11.5-15.0); WHITE BLOOD COUNT (AUTO) 4.1 K/uL (4.3-11.0)
[2016-11-27 07:31] LABS: CALCIUM, SERUM 7.8 mg/dL (8.5-10.1); CARBON DIOXIDE 33 mmol/L (21-32); CHLORIDE 109 mmol/L (98-107); GLUCOSE 83 mg/dL (74-106); MAGNESIUM 1.7 mg/dL (1.8-2.4); PHOSPHORUS 2.9 mg/dL (2.5-4.9); POTASSIUM 3.9 mmol/L (3.5-5.1); SODIUM SERUM 145 mmol/L (136-145); UREA NITROGEN, BLOOD 8 mg/dL (7-18)
--- NOTE | 2016-11-27 07:35 | NUR ---
AM RN NOTE Received patient awake, A/O X3 verbally responsive. Denies any pain or discomfort at this time. On O2 2L/min via NC. Resp even and non-labored. PICC line intact and patent. Will continue to monitor and bed in low locked position.
[2016-11-27 08:00] VITALS: BP 107/62
[2016-11-27] MEDS: MESALAMINE 400 MG CAP PO SCH ×3 (08:15→16:22)
[2016-11-27] MEDS: PANTOPRAZOLE 40 MG TABLET.DR PO SCH (08:15)
[2016-11-27] MEDS: MULTIVIT, IRON, MIN NO. 8, FA 1 TAB PO SCH (08:15)
[2016-11-27] MEDS: ESCITALOPRAM OXALATE (10 MG) 10 MG TABLET PO SCH (08:15)
[2016-11-27] MEDS: GABAPENTIN 100 MG CAPSULE PO SCH ×3 (08:15→16:22)
[2016-11-27] MEDS: NYSTATIN/TRIAMCIN CREAM 15 GM TUBE TP SCH ×2 (08:17→16:22)
[2016-11-27] MEDS: Magnesium 1GM/D5W 100ML PREMIX 100 ML IV SCH ×2 (10:44→11:48)
[2016-11-27 12:09] LABS: *SPE A/G RATIO 0.7 (0.7-1.7); *SPE ALBUMIN 1.9 g/dL (2.9-4.4); *SPE ALPHA-1-GLOBULIN 0.3 g/dL (0.0-0.4); *SPE ALPHA-2-GLOBULIN 0.7 g/dL (0.4-1.0); *SPE BETA GLOBULIN 0.6 g/dL (0.7-1.3); *SPE GLOBULIN, TOTAL 2.9 g/dL (2.2-3.9); *SPE M-SPIKE Not Observed g/dL (Not Observed); *SPE PROTEIN TOTAL 4.8 g/dL (6.0-8.5); *SPEGAMMA GLOBULIN 1.2 g/dL (0.4-1.8)
[2016-11-27] MEDS: LORAZEPAM 1 MG TABLET PO PRN (12:39)
[2016-11-27] MEDS: SOD FERRIC GLUC 125 MG in IV NS 0.9% 100 ML IV SCH (14:22)
[2016-11-27 16:00] VITALS: BP 154/76
--- NOTE | 2016-11-27 18:30 | NUR ---
AM RN NOTE Patient resting in her bed no acute distress noted. Will continue to monitor and endorse care to next shift.
--- NOTE | 2016-11-27 19:15 | NUR ---
RN NOTES RECEIVED PT ASLEEP, HOB ELEVATED, BREATHING REGULAR AND UNLABORED, NO SIGNS OF DISTRESS AND DISCOMFORT NOTED. ON 2LPM O2 VIA NC AND TOLERATED WELL. PICC LINE ON LEFT UPPER ARM INTACT, WITH DRESSING DRY AND CLEAN. PT EASILY AROUSABLE, ALERT AND ORIENTED X2-3 WITH PERIODS OF CONFUSION AND FORGETFULNESS. KEPT COMFORTABLE AND ATTENDE. KEPT BED IN THE LOWEST POSITION, LOCKED, SIDE RAILS X3 UP WITH CALL LIGHT WITHIN REACH. WILL CONTINUE TO MONITOR PT.
[2016-11-27 22:00] VITALS: BP 116/64
[2016-11-27] MEDS: ZOLPIDEM TARTRATE 5 MG TABLET PO SCH (22:15)
[2016-11-27] MEDS: risperiDONE 0.25 MG TABLET PO SCH (22:15)
[2016-11-28 05:12] LABS: CARCINOEMBRYONIC AG (CEA) 0.9 ng/mL (0.0-4.7)
--- NOTE | 2016-11-28 07:25 | NUR ---
RN NOTES PT AWAKE, HOB ELEVATED, NO SOB, NOT IN DISTRESS, ON 2LPM O2 VIA NC AND TOLERATED WELL. VITAL SIGNS STABLE, AFEBRILE. NO COMPLAIN OF PAIN, NO EPISODE OF NAUSEA AND VOMITING. REORIENT PT NEEDED. TURNED AND REPOSITION Q2 HOURS. KEPT CLEAN AND DRY, SKIN CARE RENDERED. ALL NEEDS ATTENDED. ENDORSED TO MORNING RN FOR CONTINUITY OF CARE.
--- NOTE | 2016-11-28 07:40 | NUR ---
RN OPENING NOTES RECEIVED PATIENT RESTING COMFORTABLY AWAKE IN BED. PATIENT IS A/OX2-3. PATIENT HAS A ZORAN PICC LINE. LINE IS PATENT AND INTACT. NO BLOOD RETURN NOTED. PATIENT STATES SHE IS HAVING DIFFICULTY BREATHING. PATIENT COMPLAINING OF PAIN 7/10 ON THE RIGHT ABDOMEN. PATIENT IS ON 2L/MIN VIA NC. WILL MONITOR SATURATION. NO ACUTE DISTRESS NOTED. RESPIRATIONS APPEAR EVEN AND UNLABORED. BED LOCKED IN THE LOWEST POSITION WITH SIDE RAILS UP X2. CALL LIGHT WITHIN REACH. WILL CONTINUE TO MONITOR, ASSESS AND EDUCATE PATIENT THROUGHOUT SHIFT.
[2016-11-28 08:00] VITALS: BP 158/84
[2016-11-28 08:18] LABS: CALCIUM, SERUM 7.7 mg/dL (8.5-10.1); CARBON DIOXIDE 33 mmol/L (21-32); CHLORIDE 107 mmol/L (98-107); GLUCOSE 94 mg/dL (74-106); POTASSIUM 4.3 mmol/L (3.5-5.1); SODIUM SERUM 144 mmol/L (136-145); UREA NITROGEN, BLOOD 10 mg/dL (7-18)
[2016-11-28 08:43] LABS: BASOPHILS % (AUTO) 0.3 % (0.0-2.0); EOSINOPHILS # (AUTO) 0.4 /CMM (0.0-0.7); EOSINOPHILS % (AUTO) 7.7 % (0.0-6.0); HEMATOCRIT 26 % (33-45); HEMOGLOBIN 8.4 g/dL (11.5-14.8); LYMPHOCYTES # (AUTO) 0.7 /CMM (0.8-4.8); LYMPHOCYTES % (AUTO) 12.7 % (20.0-44.0); MEAN CORPUSCULAR HEMOGLOBIN 27 PG (26.0-33.0); MEAN CORPUSCULAR HGB CONC 32 g/dl (31.0-36.0); MEAN CORPUSCULAR VOLUME 84 fL (82-100); MONOCYTES # (AUTO) 0.5 /CMM (0.1-1.30); MONOCYTES % (AUTO) 8.8 % (2.0-12.0); NEUTROPHILS # (AUTO) 3.8 /CMM (1.8-8.9); NEUTROPHILS % (AUTO) 70.5 % (43.0-81.0); PLATELET COUNT (AUTO) 380 /CMM (150-450); RDW COEFFICIENT OF VARIATION 19.8 (11.5-15.0); RED BLOOD CELL COUNT(AUTO) 3.14 MIL/uL (4.0-5.2); WHITE BLOOD COUNT (AUTO) 5.4 K/uL (4.3-11.0)
[2016-11-28] MEDS: MESALAMINE 400 MG CAP PO SCH ×3 (09:03→17:07)
[2016-11-28] MEDS: MULTIVIT, IRON, MIN NO. 8, FA 1 TAB PO SCH (09:05)
[2016-11-28] MEDS: GABAPENTIN 100 MG CAPSULE PO SCH ×3 (09:05→17:06)
[2016-11-28] MEDS: ESCITALOPRAM OXALATE (10 MG) 10 MG TABLET PO SCH (09:05)
[2016-11-28] MEDS: PANTOPRAZOLE 40 MG TABLET.DR PO SCH (09:05)
[2016-11-28] MEDS: NYSTATIN/TRIAMCIN CREAM 15 GM TUBE TP SCH ×2 (09:07→17:07)
--- NOTE | 2016-11-28 09:45 | NUR ---
RN NOTES PATIENT COMPLAINING OF SEVERE PIN ON THE RIGHT SIDE OF THE BODY RADIATING DOWN TO THE BUTTOCKS REGION. PATIENT STATING SHE IS FEELING ANXIOUS. WILL PROVIDE APPROPRIATE INTERVENTIONS.
[2016-11-28] MEDS: HYDROCODONE/APAP 5/325MG 1 EACH TABLET PO PRN (09:47)
[2016-11-28] MEDS: LORAZEPAM 1 MG TABLET PO PRN (10:10)
[2016-11-28] MEDS ORDERED: FERR-58 PO (10:45)
[2016-11-28 16:00] VITALS: BP 113/68
[2016-11-28] MEDS: SOD FERRIC GLUC 125 MG in IV NS 0.9% 100 ML IV SCH (16:29)
--- NOTE | 2016-11-28 19:00 | NUR ---
RN NOTES PT IS STABLE AND RESTING IN BED, A/OX 2. NO S/S OF DISTRESS OR SOB. SAFETY MEASURES IN PLACE, ON LOW BED TO ENSURE SAFETY. CALL LIGHT WITHIN REACH. WILL CONTINUE TO MONITOR. FOR DISCHARGE TODAY
--- NOTE | 2016-11-28 20:02 | NUR ---
RN CLOSING NOTES PATIENT RESTING COMFORTABLY IN BED. PATIENT TO BE D/C'D TO [facility]. REPORT GIVEN TO RN JUANA AT [facility]. PATIENT IN STABLE CONDITION. DISCHARGE EDUCATION GIVEN TO PATIENT. EXIT CARE COMPLETED. ALL DOCUMENTATION SIGNED. PATIENT VERBALIZED UNDERSTANDING. ALL NEEDS MET AND ALL MEDS GIVEN. REPORT GIVEN TO NIGHT RN FOR MARK UNTIL AMBULANCE PICKS UP PATIENT.
[2016-11-28] MEDS: ACETAMINOPHEN 325 MG TABLET PO PRN (20:31)
--- NOTE | 2016-11-28 20:56 | NUR ---
PATIENT DISCHARGE PATIENT LEFT AT 2042, VIA [facility] EMT CHEIKHLEAH, PATIENT ON STABLE CONDITION NO S/S OF DISTRESS NOTED, NO CHEST PAIN, NO HEADACHE, NO NAUSEA AND VOMITING, NO COMPLAINS OF PAIN, VS STABLE BP 139/77 P 92 R 18 T 98.2 , HEALTH EDUCATION AND EXIT CARE WAS PROVIDED, EDUCATION ABOUT DISEASE AND RISKS AND BENEFITS FOLLOW UP CARE PROVIDED, VERBALIZED UNDERSTANDING. ON 2LPM VIA FL 02 SAT AT 98% DOCUMENTS WAS PROVIDED. CONTINUE MEDICATION PRESCRIPTION WAS PROVIDED. VERBALIZED UNDERSTANDING. ZORAN PICC LINE REMAINED INTACT AND NOT REMOVED PER FACILITY SNF RN. AWARE OF PATIENT BEING DISCHARGE, ALL BELONGINGS WAS TAKEN, PATIENT APPRECIATIVE TO NURSES AND THANKFUL.
== END 2016-11-28 20:45 | DRG 385 ==
LOC: ER 12:49 → MED 13:52
PROVIDERS: ADMIT Internal Medicine; ATTEND Internal Medicine
PROC: 30233N1 Transfusion of Nonautologous Red Blood Cells into Peripheral Vein, Percutaneous Approach (ICD-10-PCS; principal; 2016-11-24)
DX: K51.90 Ulcerative colitis, unspecified, without complications (principal); E43 Unspecified severe protein-calorie malnutrition; J96.11 Chronic respiratory failure with hypoxia; E88.09 Other disorders of plasma-protein metabolism, not elsewhere classified; D63.8 Anemia in other chronic diseases classified elsewhere; D62 Acute posthemorrhagic anemia; D75.89 Other specified diseases of blood and blood-forming organs; F20.9 Schizophrenia, unspecified; E87.6 Hypokalemia; F32.9 Major depressive disorder, single episode, unspecified; F41.9 Anxiety disorder, unspecified; I12.9 Hypertensive chronic kidney disease with stage 1 through stage 4 chronic kidney disease, or unspecified chronic kidney disease; K21.9 Gastro-esophageal reflux disease without esophagitis; N18.9 Chronic kidney disease, unspecified; I25.10 Atherosclerotic heart disease of native coronary artery without angina pectoris; M62.50 Muscle wasting and atrophy, not elsewhere classified, unspecified site; Z68.29 Body mass index [BMI] 29.0-29.9, adult; L98.9 Disorder of the skin and subcutaneous tissue, unspecified; Z87.440 Personal history of urinary (tract) infections; Z87.11 Personal history of peptic ulcer disease; Z87.19 Personal history of other diseases of the digestive system; L30.9 Dermatitis, unspecified; G89.29 Other chronic pain
CPT/HCPCS: 36415; 80048-TC; 80053-TC; 82272-TC; 82306; 82378; 82728-TC; 82746; 83010; 83540-TC; 83735-TC; 84100-TC; 84155; 84165; 84443-TC; 84550-TC; 85025-TC; 85045-TC; 85652-TC; 85730-TC; 86850-TC; 86921-TC; 87081-TC; A4606; A6402; J2916; J3475; J7030; J7050; P9016-BL; Z7610

== ENCOUNTER 2017-10-11 17:44 | Inpatient (IN) | payer MEDICARE, OTHER ==
[~2017-10-11] VITALS: Ht 152.4 cm; Wt 57.2 kg
[~2017-10-11 17:44] MED LIST changes: +ASCO500T9 PO; +FERR325T23 PO; -LEVO250T2 PO; +LORA-259 PO; -LORA1TAB82 PO; +MESA400C2 PO; -METR500T PO; -Mesalamine PO; -NUT.237L70 PO; +RISP0.2515 PO; -RISP0.253 PO; -RISP0.5T2 PO; -RXVAN XX; -VANC500F2 IV
[2017-10-11] MEDS ORDERED: PANT40TA2 PO (18:26)
[2017-10-11] MEDS ORDERED: TRAZ-182 PO (18:26)
[2017-10-11] MEDS ORDERED: BUDE0.5A4 IH (18:26)
[2017-10-11] MEDS ORDERED: METO25TA20 PO (18:26)
[2017-10-11] MEDS ORDERED: BISA5TAB10 PO (18:26)
[2017-10-11] MEDS ORDERED: HYDR-552 PO (18:26)
[2017-10-11] MEDS ORDERED: IV NS 0.9% 500 ML BAG IV ONE (18:30)
--- NOTE | 2017-10-11 18:30 | NUR ---
PT BBPA FROM [facility] C/C GENERALIZED ABD PAIN 10/01 NON RADIATING WITH + D, -N/V. -DUSURIA. PT IS AAOX4. SKIN WNL. ORAL MUCOSA NOTED TO BE DRY. VSS. RESP EVEN AND UNLABORED. NO S/S OF ACUTE DISTRESS NOTED. PT PLACED ON OVERSEER KOSHER KITCHEN AND POX. PT SAFETY AND COMFORT MEASURES IN PLACE. MD BEDSIDE FOR EVAL.
[2017-10-11 18:57] LABS: BASOPHILS % (AUTO) 0.3 % (0.0-2.0); EOSINOPHILS % (AUTO) 0.6 % (0.0-6.0); HEMATOCRIT 31 % (33-45); HEMOGLOBIN 10.3 g/dL (11.5-14.8); LYMPHOCYTES # (AUTO) 1.3 /CMM (0.8-4.8); LYMPHOCYTES % (AUTO) 10.6 % (20.0-44.0); MEAN CORPUSCULAR HEMOGLOBIN 29 PG (26.0-33.0); MEAN CORPUSCULAR HGB CONC 34 g/dl (31.0-36.0); MEAN CORPUSCULAR VOLUME 86 fL (82-100); MONOCYTES # (AUTO) 1.9 /CMM (0.1-1.30); NEUTROPHILS # (AUTO) 9.1 /CMM (1.8-8.9); NEUTROPHILS % (AUTO) 73.5 % (43.0-81.0); PLATELET COUNT (AUTO) 353 /CMM (150-450); RED BLOOD CELL COUNT(AUTO) 3.56 MIL/uL (4.0-5.2); WHITE BLOOD COUNT (AUTO) 12.4 K/uL (4.3-11.0)
[2017-10-11 19:07] LABS: CALCIUM, SERUM 8.9 mg/dL (8.5-10.1); CARBON DIOXIDE 23 mmol/L (21-32); CHLORIDE 99 mmol/L (98-107); GLUCOSE 110 mg/dL (74-106); POTASSIUM 3.9 mmol/L (3.5-5.1); SODIUM SERUM 132 mmol/L (136-145); UREA NITROGEN, BLOOD 37 mg/dL (7-18)
[2017-10-11 19:11] LABS: INR 0.98 (0.85-1.15)
[2017-10-11 19:13] LABS: ALANINE AMINOTRANSFERASE 13 U/L (12-78); ALBUMIN 2.3 g/dL (3.4-5.0); ALKALINE PHOSPHATASE 103 U/L (46-116); ASPARTATE AMINOTRANSFERASE 8 U/L (15-37); BILIRUBIN,DIRECT 0.1 mg/dL (0.0-0.2); BILIRUBIN,TOTAL 0.2 mg/dL (0.2-1.0); LIPASE 95 U/L (73-393); TOTAL PROTEIN, SERUM 7.4 g/dL (6.4-8.2)
--- NOTE | 2017-10-11 20:04 | NUR ---
PT AAOX4. PT PROVIDED WITH SOCKS TO AMBULATE TO RESTROOM TO GIVE URINE SAMPLE. PT STATES SHE WALKS ON HER OWN AND IS ABLE TO AMBULATE TO THE RESTROOM. STEADY GAIT NOTED ON AMBULATION TO RESTROOM. URINE CUP PROVIDED TO PT. WILL CONTINUE TO MONITOR PT.
--- NOTE | 2017-10-11 20:19 | NUR ---
INFORMED BY EMT BOOKER THAT THE PT WAS FOUND LAYING ON THE FLOOR. PT HELPED BACK TO ER BED 2. PT AAOX4. NO OBVIOUS S/S OF BRUISING OR BLEEDING NOTED. PT STATES SHE HAS PAIN ON HER R [place]. PT PLACED ON MONITOR AND POX. PT SAFETY AND COMFORT MEASURES IN PLACE. MADE AWARE.
[2017-10-11] MEDS ORDERED: ZOLPIDEM TARTRATE 5 MG TABLET PO PRN (20:30)
[2017-10-11] MEDS ORDERED: Z GUARD REMEDY 2 OZ OINT TP PRN (20:30)
[2017-10-11] MEDS ORDERED: MAG HYDROX/AL HYDROX/SIMETH 30 ML UDC PO PRN (20:30)
[2017-10-11] MEDS ORDERED: LORAZEPAM 1 MG TABLET PO PRN (20:30)
[2017-10-11] MEDS ORDERED: MAGNESIUM HYDROXIDE 30 ML UDC PO PRN (20:30)
[2017-10-11] MEDS ORDERED: HYDROCODONE/APAP 5/325MG 1 EACH TABLET PO PRN (20:30)
--- NOTE | 2017-10-11 20:47 | NUR ---
PT TO CT
[2017-10-11 20:51] LABS: APPEARANCE,URINE Slightly Cloudy (CLEAR); BILIRUBIN,URINE Negative (NEGATIVE); BLOOD, URINE Small Ery/uL (NEGATIVE); COLOR,URINE Yellow (YELLOW); KETONES,URINE Negative (NEGATIVE); LEUKOCYTE ESTERASE ,URINE Moderate (NEGATIVE); NITRITE, URINE Positive (NEGATIVE); PH,URINE 5.5 (5.0-8.0); PROTEIN,URINE 30 mg/dl (NEGATIVE); UGLUCOSE Negative (NEGATIVE); UROBILINOGEN,URINE 0.2 EU/dL (0.2)
[2017-10-11 20:58] LABS: BAND % (MANUAL) 6 % (0.0-5.0); EOSINOPHILS % (MANUAL) 3 % (0-4); LYMPHOCYTES % (MANUAL) 14 % (16-48); MONOCYTES % (MANUAL) 12 % (0-11.0); NEUTROPHILS % (MANUAL) 65 (42-76)
[2017-10-11 20:58] LABS: BACTERIA,URINE Many /HPF (None Seen); SQUAMOUS EPITHELIAL CELL,UR Moderate /HPF (None Seen)
[2017-10-11 20:59] LABS: WBC,URINE 21-50 /HPF (0-3)
--- NOTE | 2017-10-11 21:01 | NUR ---
PT BACK FROM CT
--- NOTE | 2017-10-11 21:03 | NUR ---
Patient is resting comfortably in bed with eyes closed. Easily aroused. VSS. WILL CONTINUE TO MONITOR PT.
--- NOTE | 2017-10-11 21:49 | NUR ---
REPORT GIVEN TO ANABELL FOR MARK
[2017-10-11] MEDS ORDERED: LEVOFLOXACIN 500 MG /D5W 100ML 100 ML IV ONE (21:50)
--- NOTE | 2017-10-11 21:55 | NUR ---
RN ADMITTING NOTES PATIENT BROUGHT INTO THE UNIT VIA GURNEY, ABLE TO AMBULATE SAFELY WITH STANDBY ASSIST FROM GURNEY TO BED. PT IS ALERT AND ORIENTED X 3, NOTED WITH FORGETFULNESS, ABLE TO VERBALIZE NEEDS, DENIES PAIN AT THIS TIME AND VERBALIZED THAT SHE IS FEELING BETTER SINCE ADMISSION. ORIENTED PT TO ROOM, UNIT, CALL LIGHT AND USE OF CALL LIGHT AND PATIENT VERBALIZED UNDERSTANDING. PT NOTED WITH NO SOB, BREATHING EVEN AND UNLABORED, IN NO ACUTE DISTRESS, NOTED WITH IV ATB, LEVAQUIN, INFUSING WELL VIA IVP ON LAC G# 20, ALL PATIENT'S NEEDS ATTENDED TO AT THIS TIME, PLACED BED IN LOW POSITION AND LOCKED IN PLACE. WILL CONTINUE TO MONITOR.
[2017-10-11] MEDS: LEVOFLOXACIN 500 MG /D5W 100ML 500 MG in PREMIX 1 EA IV SCH (21:57)
[2017-10-11] MEDS: risperiDONE 0.25 MG TABLET PO SCH (22:23)
[2017-10-11] MEDS: TRAZODONE 50 MG TABLET PO SCH (22:23)
[2017-10-11] MEDS: IV NS 0.9% 1,000 ML IV PRN (22:26)
[2017-10-11 23:03] VITALS: BP 94/58
[2017-10-11] MEDS: METRONIDAZOLE 500MG/ NS 100ML 500 MG in PREMIX 1 EA IV SCH (23:52)
[2017-10-12] MEDS: METRONIDAZOLE 500MG/ NS 100ML 500 MG in PREMIX 1 EA IV SCH ×3 (05:20→17:19)
[2017-10-12 06:00] VITALS: BP 99/41
[2017-10-12] MEDS: HYDROCODONE/APAP 10/325MG 1 EA TABLET PO PRN ×2 (06:00→17:19)
[2017-10-12 06:17] LABS: BASOPHILS % (AUTO) 0.3 % (0.0-2.0); EOSINOPHILS % (AUTO) 0.9 % (0.0-6.0); HEMATOCRIT 28 % (33-45); LYMPHOCYTES # (AUTO) 0.8 /CMM (0.8-4.8); LYMPHOCYTES % (AUTO) 10.2 % (20.0-44.0); MEAN CORPUSCULAR HEMOGLOBIN 29 PG (26.0-33.0); MEAN CORPUSCULAR HGB CONC 32 g/dl (31.0-36.0); MEAN CORPUSCULAR VOLUME 89 fL (82-100); MONOCYTES # (AUTO) 0.6 /CMM (0.1-1.30); MONOCYTES % (AUTO) 6.9 % (2.0-12.0); NEUTROPHILS # (AUTO) 6.7 /CMM (1.8-8.9); NEUTROPHILS % (AUTO) 81.7 % (43.0-81.0); PLATELET COUNT (AUTO) 275 /CMM (150-450); RED BLOOD CELL COUNT(AUTO) 3.12 MIL/uL (4.0-5.2); WHITE BLOOD COUNT (AUTO) 8.2 K/uL (4.3-11.0)
--- NOTE | 2017-10-12 06:23 | NUR ---
RN CLOSING NOTES PATIENT IN BED, ALERT, ASLEEP BUT EASILY AROUSABLE, NOTED WITH NO SOB, BREATHING EVEN AND UNLABORED, IN NO ACUTE DISTRESS. ALL PATIENT'S NEEDS ATTENDED TO THROUGHOUT THE SHIFT.PT SLEPT WELL. REMINDED PT OF SAFETY PRECAUTIONS AND USE OF CALL LIGHT, VERBALIZED UNDERSTANDING. IVF INFUSING WELL ORDERED VIA IVP ON LAC G@20. PLACED BED IN LOW POSITION, LOCKED IN PLACE, BED ALARM ON. PATIENT WITH ONE EPISODE OF LOOSE BOWEL NOTED IN DIAPER WITHIN THIS SHIFT. PT ABLE TO AMBULATE SAFELY TO BATHROOM WITH STANDBY ASSIST, REMINDED PATIENT TO INFORM STAFF WHEN SHE NEEDS TO USE BATHROOM TO BE ABLE TO COLLECT SPECIMEN, VERBALIZED UNDERSTANDING. WILL ENDORSE TO AM SHIFT NURSE FOR CONTINUITY OF CARE.
[2017-10-12 06:42] LABS: CALCIUM, SERUM 7.9 mg/dL (8.5-10.1); CARBON DIOXIDE 20 mmol/L (21-32); CHLORIDE 105 mmol/L (98-107); CREATININE 1.8 mg/dL (0.6-1.3); GLUCOSE 86 mg/dL (74-106); MAGNESIUM 1.8 mg/dL (1.8-2.4); PHOSPHORUS 3.9 mg/dL (2.5-4.9); POTASSIUM 3.6 mmol/L (3.5-5.1); SODIUM SERUM 136 mmol/L (136-145); UREA NITROGEN, BLOOD 32 mg/dL (7-18)
[2017-10-12 06:54] LABS: CHOLESTEROL 78 mg/dL (<200); HDL CHOLESTEROL 22 mg/dL (40-60); LDL 41 mg/dL (0-99); THYROID STIMULATING HORMONE 2.974 uIU/mL (0.358-3.74); TRIGLYCERIDES 115 mg/dL (30-150)
--- NOTE | 2017-10-12 07:46 | NUR ---
MS RN OPENING NOTE RECEIVED PATIENT IN BED, SLEEPING, EASILY AROUSED WITH VERBAL STIMULI. ORIENTED X2-3. ON ROOM AIR, TOLERATING WELL. RESPIRATIONS EVEN AND UNLABORED, IN NO APPARENT DISTRESS OR DISCOMFORT AT THIS TIME. DENIES PAIN AND SOB AT THIS TIME. ABLE TO COMMUNICATE NEEDS. PATIENT WITH DIAPER FOR ELIMINATION. LEFT AC 20G IVC WITH FLUIDS RUNNING AT 75 ML/HR. PATIENT KEPT CLEAN AND COMFORTABLE, ALL NEEDS ATTENDED. SAFETY MEASURES IN PLACE, BED IN LOW LOCKED POSITION, SIDE RAILS UP X2, CALL LIGHT WITHIN EASY REACH. WILL CONTINUE TO MONITOR.
[2017-10-12 08:00] VITALS: BP 93/51
[2017-10-12] MEDS: ESCITALOPRAM OXALATE (10 MG) 10 MG TABLET PO SCH (08:32)
[2017-10-12] MEDS: GABAPENTIN 100 MG CAPSULE PO SCH ×3 (08:32→17:19)
[2017-10-12] MEDS: ASCORBIC ACID 500 MG TABLET PO SCH (08:32)
[2017-10-12] MEDS: FLUTICASONE/VILANTEROL 1 EACH BLST.W.DEV IH SCH (08:51)
[2017-10-12] MEDS: MORPHINE SULFATE INJ 2 MG/ML DISP.SYRIN IV PRN (08:55)
[2017-10-12 16:00] VITALS: BP 118/67
--- NOTE | 2017-10-12 19:57 | NUR ---
MS RN CLOSING NOTE PATIENT IN BED, SLEEPING, EASILY AROUSED WITH VERBAL STIMULI. ORIENTED X2-3. ON ROOM AIR, TOLERATING WELL. RESPIRATIONS EVEN AND UNLABORED, IN NO APPARENT DISTRESS OR DISCOMFORT AT THIS TIME. DENIES PAIN AND SOB AT THIS TIME. ABLE TO COMMUNICATE NEEDS. PATIENT WITH DIAPER FOR ELIMINATION. LEFT AC 20G IVC WITH FLUIDS RUNNING AT 75 ML/HR. PATIENT KEPT CLEAN AND COMFORTABLE, ALL NEEDS ATTENDED. SAFETY MEASURES IN PLACE, BED IN LOW LOCKED POSITION, SIDE RAILS UP X2, CALL LIGHT WITHIN EASY REACH. WILL ENDORSE TO PM NURSE FOR MARK.
[2017-10-12 20:00] VITALS: BP 80/61
[2017-10-12] MEDS: LEVOFLOXACIN 500 MG /D5W 100ML 500 MG in PREMIX 1 EA IV SCH (21:32)
[2017-10-12] MEDS: risperiDONE 0.25 MG TABLET PO SCH (21:45)
[2017-10-12] MEDS: TRAZODONE 50 MG TABLET PO SCH (21:45)
[2017-10-12 21:46] VITALS: BP 100/72
[2017-10-13] MEDS: METRONIDAZOLE 500MG/ NS 100ML 500 MG in PREMIX 1 EA IV SCH ×2 (00:35→05:47)
[2017-10-13] MEDS: IV NS 0.9% 1,000 ML IV PRN ×2 (05:52→22:34)
--- NOTE | 2017-10-13 06:44 | NUR ---
MS RN NOTES AWAKE & RESPONSIVE. NOT IN ANY DISTRESS. NO SOB NOTED. DENIES ANY PAIN OR DISCOMFORT AT THIS TIME. WITH IVF INFUSING WELL. AM CARE DONE. MONITORED ACCORDINGLY. CALL LIGHT WITHIN REACH. BED IN LOWEST POSITION. SR UP X 3 FOR SAFETY WITH BED ALARM ON. WILL ENDORSE TO NEXT SHIFT.
--- NOTE | 2017-10-13 07:20 | NUR ---
MS/RN OPENING NOTE THE PATIENT IS RECEIVED IN BED AND AWAKE. ALERT AND ORIENTED X3 WITH EPISODES OF FORGETFULNESS. REMINDERS PROVIDED NEEDED. RESPIRATION REGULAR AND UNLABORED. DENIES SOB. DENIES PAIN AT THIS TIME. LAC G 20 PATENT AND IV FLUIDS INFUSING WITH NO S/S INFILTRATION. PATIENT WEARING DIAPER. BED LOW AND LOCKED. SIDE RAILS UP X3. CALL LIGHT WITHIN REACH. WILL CONTINUE TO MONITOR.
[2017-10-13 08:00] VITALS: BP 99/51
[2017-10-13 08:51] LABS: BASOPHILS % (AUTO) 0.1 % (0.0-2.0); EOSINOPHILS % (AUTO) 0.5 % (0.0-6.0); HEMATOCRIT 30 % (33-45); HEMOGLOBIN 9.3 g/dL (11.5-14.8); LYMPHOCYTES # (AUTO) 0.7 /CMM (0.8-4.8); LYMPHOCYTES % (AUTO) 8.7 % (20.0-44.0); MEAN CORPUSCULAR HEMOGLOBIN 29 PG (26.0-33.0); MEAN CORPUSCULAR HGB CONC 31 g/dl (31.0-36.0); MEAN CORPUSCULAR VOLUME 93 fL (82-100); MONOCYTES # (AUTO) 0.4 /CMM (0.1-1.30); MONOCYTES % (AUTO) 4.6 % (2.0-12.0); NEUTROPHILS # (AUTO) 7.4 /CMM (1.8-8.9); NEUTROPHILS % (AUTO) 86.1 % (43.0-81.0); PLATELET COUNT (AUTO) 209 /CMM (150-450); RDW COEFFICIENT OF VARIATION 17.4 (11.5-15.0); RED BLOOD CELL COUNT(AUTO) 3.27 MIL/uL (4.0-5.2); WHITE BLOOD COUNT (AUTO) 8.6 K/uL (4.3-11.0)
[2017-10-13] MEDS: ESCITALOPRAM OXALATE (10 MG) 10 MG TABLET PO SCH (08:52)
[2017-10-13] MEDS: GABAPENTIN 100 MG CAPSULE PO SCH ×3 (08:52→17:01)
[2017-10-13] MEDS: ASCORBIC ACID 500 MG TABLET PO SCH (08:52)
[2017-10-13] MEDS: FLUTICASONE/VILANTEROL 1 EACH BLST.W.DEV IH SCH (08:52)
[2017-10-13 09:12] LABS: CARBON DIOXIDE 14 mmol/L (21-32); CHLORIDE 105 mmol/L (98-107); CREATININE 2.1 mg/dL (0.6-1.3); GLUCOSE 104 mg/dL (74-106); POTASSIUM 4.3 mmol/L (3.5-5.1); SODIUM SERUM 133 mmol/L (136-145); UREA NITROGEN, BLOOD 26 mg/dL (7-18)
[2017-10-13] MEDS: MORPHINE SULFATE INJ 2 MG/ML DISP.SYRIN IV PRN (11:21)
[2017-10-13] MEDS: METRONIDAZOLE 500 MG TABLET PO SCH ×2 (12:43→17:01)
[2017-10-13 14:09] VITALS: BP 102/62
--- NOTE | 2017-10-13 15:00 | NUR ---
MS/RN NOTE PATIENT NON-COMPLIANT WITH IV FLUIDS FOR HYDRATION DESPITE EXPLAINING RISKS AND BENEFITS MULTIPLE TIMES.
[2017-10-13] MEDS: NYSTATIN/TRIAMCIN CREAM 15 GM TUBE TP SCH (17:01)
--- NOTE | 2017-10-13 18:36 | NUR ---
MS/RN CLOSING NOTE PATIENT IN BED. ALERT AND ORIENTED X3 WITH EPISODES OF FORGETFULNESS. REMINDERS GIVEN ORDERED. DENIES SOB. RESPIRATION REGULAR AND UNLABORED. DENIES PAIN. PATIENT IN NO APPARENT DISTRESS. LAC G 24 PATENT AND SALINE LOCKED. PATIENT CONTINENT ON BOWEL AND BLADDER. STAND BY ASSIST PROVIDED DURING AMBULATION. VERBAL CUES ARE GIVEN TO KEEP SAFETY AWARENESS HIGH. BED LOW AND LOCKED. SIDE RAILS UP X3. CALL LIGHT WITHIN REACH. WILL ENDORSE TO FACILITY COORDINATOR.
[2017-10-13 20:00] VITALS: BP 85/47
[2017-10-13] MEDS: LEVOFLOXACIN (500MG) 500 MG TABLET PO SCH (21:12)
[2017-10-13 21:25] VITALS: BP 74/37
[2017-10-13] MEDS: risperiDONE 0.25 MG TABLET PO SCH (21:30)
[2017-10-13] MEDS ORDERED: IV NS 0.9% 1,000 ML IV ONE (21:30)
[2017-10-13] MEDS: TRAZODONE 50 MG TABLET PO SCH (21:30)
--- NOTE | 2017-10-13 21:30 | NUR ---
MS RN NOTES BP 74/[address] GAMBOA. WITH NEW ORDERS TO GIVE 1L BOLUS OF NS. ORDERS NOTED AND CARRIED OUT. WILL CONTINUE TO MONITOR.
[2017-10-14] VITALS (7 sets, daily range): BP systolic 95–122; BP diastolic 53–77
[2017-10-14] MEDS: METRONIDAZOLE 500 MG TABLET PO SCH ×5 (00:03→23:55)
--- NOTE | 2017-10-14 00:19 | NUR ---
MS RN NOTES AWAKE & RESPONSIVE. NOT IN ANY DISTRESS. NO SOB NOTED. DENIES ANY PAIN OR DISCOMFORT AT THIS TIME. DENIES ANY DIZZINESS OR LIGHTHEADEDNESS. VSS. WILL CONTINUE TO MONITOR.
[2017-10-14] MEDS: ACETAMINOPHEN 325 MG TABLET PO PRN ×2 (02:25→20:22)
[2017-10-14] MEDS: NYSTATIN/TRIAMCIN CREAM 15 GM TUBE TP SCH ×2 (02:26→15:06)
[2017-10-14] MEDS: ONDANSETRON HCL/PF 4 MG/2 ML VIAL IVP PRN ×2 (06:33→18:04)
--- NOTE | 2017-10-14 07:10 | NUR ---
MS/RN OPENING NOTE PATIENT IS RECEIVED IN BED AWAKE. PATIENT IS ALERT AND ORIENTED X3. DENIES PAIN AT THIS TIME. BREATHING EVEN AND UNLABORED. DENIES SOB. PATIENT RECEIVING OXYGEN 2L/MIN VIA NASAL CANNULA. PATIENT IN NO APPARENT DISTRESS. LAC G 24 PATENT AND IV INFUSING WITH NO S/S INFILTRATION. PATIENT IS GIVEN VERBAL CUES TO KEEP SAFETY AWARENESS HIGH. BED LOW AND LOCKED. SIDE RAILS UP X2. CALL LIGHT WITHIN REACH. WILL CONTINUE TO MONITOR.
[2017-10-14] MEDS: GABAPENTIN 100 MG CAPSULE PO SCH ×3 (08:28→17:21)
[2017-10-14] MEDS: FLUTICASONE/VILANTEROL 1 EACH BLST.W.DEV IH SCH (08:28)
[2017-10-14] MEDS: ESCITALOPRAM OXALATE (10 MG) 10 MG TABLET PO SCH (08:28)
[2017-10-14] MEDS: ASCORBIC ACID 500 MG TABLET PO SCH (08:28)
--- NOTE | 2017-10-14 08:35 | NUR ---
WOUND CARE CONSULT WOUND CARE RECEIVED CONSULT FOR REDNESS ON GROIN, BUTTOCKS, AND PERINEUM. WOUND CARE WILL DEFER CONSULT AND ALL TREATMENT PLANS TO SURGICAL TEAM WHO ARE CURRENTLY FOLLOWING. PATIENT WITH LIDA AT 19. WILL SEE PRN.
--- NOTE | 2017-10-14 12:07 | NUR ---
MS/RN NOTE PATIENT IS SEEN BY DR WIN WITH NEW ORDER ORDER. THE ORDER IS READ BACK, VERIFIED. NOTED AND CARRIED OUT.
[2017-10-14] MEDS: IV NS 0.9% 1,000 ML IV PRN (17:21)
--- NOTE | 2017-10-14 17:51 | NUR ---
MS/RN CLOSING NOTE PATIENT ALERT AND ORIENTED X3 WITH EPISODES OF FORGETFULNESS. PATENT IS GIVEN FREQUENT REMINDERS. DENIES PAIN. BREATHING EVEN AND UNLABORED. DENIES SOB. PATIENT IS RECEIVING OXYGEN 2L/MIN VIA NASAL CANNULA. PATIENT IN NO APPARENT DISTRESS. LAC G 24 PATENT NS INFUSING AT 75ML/HR. NO S/S INFILTRATION NOTED. PATIENT TOLERATED MCH SOFT DIET WELL. NO COUGHING/CHOKING WHEN EATING. ABDOMEN SOFT AND NON-DISTENDED. PATIENT AMBULATES WITH STAND BY ASSIST. VERBAL CUES ARE GIVEN TO KEEP SAFETY AWARENESS HIGH. BED LOW AND LOCKED. SIDE RAILS UP X3. CALL LIGHT WITHIN REACH. WILL ENDORSE TO MEASUREMENT AND VERIFICATION ENGINEER.
[2017-10-14] MEDS: LEVOFLOXACIN (500MG) 500 MG TABLET PO SCH (20:22)
--- NOTE | 2017-10-14 20:35 | NUR ---
RECIEVED MS REES ALERT AND ORIENTATED X2. SMILING AND ANSWERING QUESTION CORRECT. SHE IS COMPLAINING OF ABD PAIN. STATED SHE HAD A BM TODAY. BS VIA AUSCULTATION. OFFERED HER WATER AND SHE SWALLOWED W/O PROBLEMS. EXPLAINED THE CALL LIGHT TO HER AND TOLD HER SHE NEEDS TO CALL TO GET OOB BED ALARM ON
[2017-10-14] MEDS: TRAZODONE 50 MG TABLET PO SCH (21:41)
[2017-10-14] MEDS: risperiDONE 0.25 MG TABLET PO SCH (21:41)
[2017-10-15] MEDS: HYDROCODONE/APAP 10/325MG 1 EA TABLET PO PRN ×3 (00:50→17:29)
[2017-10-15] MEDS: NYSTATIN/TRIAMCIN CREAM 15 GM TUBE TP SCH ×2 (02:53→16:09)
[2017-10-15] MEDS: METRONIDAZOLE 500 MG TABLET PO SCH ×2 (05:38→12:27)
--- NOTE | 2017-10-15 05:44 | NUR ---
CLOSING NOTES: AWAKE NOST OF THE NIGHT. WANTS THE NURSES TO SIT IN HER ROOM, STATED SHE HAS NO ONE. C/O ABD PAIN MEDICATED WITH NORCO AND EFFECTIVE. SHE WAS ABLE TO GET SOME SLEEP. AMBULATES TO THE BATHROOM WITH ONE NURSE ASSIST, STEADY ON HER LEGS.
--- NOTE | 2017-10-15 07:10 | NUR ---
MS/RN OPENING NOTE PATIENT IS RECEIVED IN BED AWAKE. ALERT AND ORIENTED X3 WITH EPISODES OF FORGETFULNESS. DENIES SOB. RESPIRATION REGULAR AND UNLABORED. DENIES PAIN. LAC G 22 PATENT AND IV FLUID IS INFUSING WITH NO S/S INFILTRATION. BED LOW AND LOCKED. SIDE RAILS UP X3. CALL LIGHT WITHIN REACH. WILL CONTINUE TO MONITOR.
[2017-10-15 08:00] VITALS: BP 114/55
[2017-10-15] MEDS: GABAPENTIN 100 MG CAPSULE PO SCH ×3 (08:32→17:29)
[2017-10-15] MEDS: ASCORBIC ACID 500 MG TABLET PO SCH (08:32)
[2017-10-15] MEDS: FLUTICASONE/VILANTEROL 1 EACH BLST.W.DEV IH SCH (08:32)
[2017-10-15] MEDS: ESCITALOPRAM OXALATE (10 MG) 10 MG TABLET PO SCH (08:32)
[2017-10-15 11:34] LABS: EOSINOPHILS % (AUTO) 0.6 % (0.0-6.0); HEMATOCRIT 27 % (33-45); HEMOGLOBIN 8.7 g/dL (11.5-14.8); LYMPHOCYTES # (AUTO) 0.7 /CMM (0.8-4.8); LYMPHOCYTES % (AUTO) 8.8 % (20.0-44.0); MEAN CORPUSCULAR HEMOGLOBIN 29 PG (26.0-33.0); MEAN CORPUSCULAR HGB CONC 32 g/dl (31.0-36.0); MEAN CORPUSCULAR VOLUME 89 fL (82-100); MONOCYTES # (AUTO) 0.8 /CMM (0.1-1.30); MONOCYTES % (AUTO) 9.9 % (2.0-12.0); NEUTROPHILS # (AUTO) 6.2 /CMM (1.8-8.9); NEUTROPHILS % (AUTO) 80.7 % (43.0-81.0); PLATELET COUNT (AUTO) 320 /CMM (150-450); RDW COEFFICIENT OF VARIATION 16.9 (11.5-15.0); RED BLOOD CELL COUNT(AUTO) 3.04 MIL/uL (4.0-5.2); WHITE BLOOD COUNT (AUTO) 7.7 K/uL (4.3-11.0)
[2017-10-15 11:43] LABS: ALANINE AMINOTRANSFERASE 15 U/L (12-78); ALBUMIN 1.6 g/dL (3.4-5.0); ALKALINE PHOSPHATASE 67 U/L (46-116); ASPARTATE AMINOTRANSFERASE 11 U/L (15-37); BILIRUBIN,TOTAL 0.2 mg/dL (0.2-1.0); CALCIUM, SERUM 7.6 mg/dL (8.5-10.1); CARBON DIOXIDE 18 mmol/L (21-32); CHLORIDE 110 mmol/L (98-107); CREATININE 1.9 mg/dL (0.6-1.3); GLUCOSE 132 mg/dL (74-106); MAGNESIUM 1.8 mg/dL (1.8-2.4); PHOSPHORUS 2.3 mg/dL (2.5-4.9); POTASSIUM 3.5 mmol/L (3.5-5.1); SODIUM SERUM 139 mmol/L (136-145); TOTAL PROTEIN, SERUM 5.4 g/dL (6.4-8.2); UREA NITROGEN, BLOOD 17 mg/dL (7-18)
[2017-10-15] MEDS ORDERED: NEUTRA PHOS 1 POWD.PACKET PO ONE (12:30)
[2017-10-15 16:00] VITALS: BP 105/66
--- NOTE | 2017-10-15 17:49 | NUR ---
MS/RN CLOSING NOTE PATIENT ALERT AND ORIENTED X3. REMINDERS GIVEN NEEDED. RESPIRATION REGULAR AND UNLABORED. DENIES SOB. PATIENT VERBALIZED PAIN MEDICATION GIVEN BEING EFFECTIVE AND RATED PAIN 3/10. PATIENT IN NO APPARENT DISTRESS. DISCHARGE EDUCATION WAS GIVEN TO THE PATIENT AND THE RECEIVING NURSE JUANA. PATIENT INTERNAL CONSULTANT ON A GURNEY BY AN AMBULANCE. PATIENT LEFT THE HOSPITAL IN STABLE CONDITION.
== END 2017-10-15 17:54 | DRG 371 ==
LOC: ER 17:46 → MEDSG2 20:10
DX: A04.9 Bacterial intestinal infection, unspecified (principal); N17.0 Acute kidney failure with tubular necrosis; N39.0 Urinary tract infection, site not specified; E87.1 Hypo-osmolality and hyponatremia; N18.9 Chronic kidney disease, unspecified; K21.9 Gastro-esophageal reflux disease without esophagitis; I12.9 Hypertensive chronic kidney disease with stage 1 through stage 4 chronic kidney disease, or unspecified chronic kidney disease; J44.9 Chronic obstructive pulmonary disease, unspecified; F41.9 Anxiety disorder, unspecified; F03.90 Unspecified dementia, unspecified severity, without behavioral disturbance, psychotic disturbance, mood disturbance, and anxiety; F32.9 Major depressive disorder, single episode, unspecified; I25.10 Atherosclerotic heart disease of native coronary artery without angina pectoris; Z88.0 Allergy status to penicillin; Z91.81 History of falling; K27.9 Peptic ulcer, site unspecified, unspecified as acute or chronic, without hemorrhage or perforation; L30.8 Other specified dermatitis; K29.00 Acute gastritis without bleeding; K29.50 Unspecified chronic gastritis without bleeding; E86.1 Hypovolemia; F20.9 Schizophrenia, unspecified; G89.29 Other chronic pain; B96.89 Other specified bacterial agents as the cause of diseases classified elsewhere
CPT/HCPCS: 36415; 70450-TC; 80048-TC; 80053-TC; 80061-TC; 80076-TC; 81000-TC; 83690-TC; 83735-TC; 84100-TC; 84443-TC; 85025-TC; 85730-TC; 87081-TC; 87086-TC; A4216; A4606; J1956; J2270; J2405; J3490; J7030; J7040; Z7610

== ENCOUNTER 2018-03-14 16:04 | Emergency (ER) | payer MEDICARE, OTHER ==
[~2018-03-14] VITALS: Ht 152.4 cm; Wt 52.2 kg
[~2018-03-14 16:04] MED LIST changes: +BISA5TAB10 PO; +BUDE0.5A4 IH; -FERR325T23 PO; -GUAI5SYR PO; +HYDR-4384 PO; -MESA400C2 PO; +METO25TA20 PO; +PANT40TA2 PO; +TRAZ-182 PO; -ZOLP5TAB2 PO
--- NOTE | 2018-03-14 16:10 | NUR ---
PT TY APA unit 190 from [facility] here for low H/H, abnormal lab9, PT IS AAOX4, NOT IN RESPIRATORY DISTRESS, V/S STABLE, KEPT RESTED AND COMFORTABLE.
--- NOTE | 2018-03-14 16:12 | NUR ---
PT LABS DRAWNED AND SENT TO LAB.
[2018-03-14 16:37] LABS: BASOPHILS # (AUTO) 0.1 /CMM (0.0-0.2); BASOPHILS % (AUTO) 0.9 % (0.0-2.0); EOSINOPHILS % (AUTO) 4.2 % (0.0-6.0); HEMATOCRIT 25 % (33-45); HEMOGLOBIN 7.7 g/dL (11.5-14.8); LYMPHOCYTES % (AUTO) 32.1 % (20.0-44.0); MEAN CORPUSCULAR HGB CONC 32 g/dl (31.0-36.0); MEAN CORPUSCULAR VOLUME 82 fL (82-100); MONOCYTES # (AUTO) 0.5 /CMM (0.1-1.30); MONOCYTES % (AUTO) 8.5 % (2.0-12.0); NEUTROPHILS # (AUTO) 3.4 /CMM (1.8-8.9); NEUTROPHILS % (AUTO) 54.3 % (43.0-81.0); PLATELET COUNT (AUTO) 308 /CMM (150-450); WHITE BLOOD COUNT (AUTO) 6.3 K/uL (4.3-11.0)
[2018-03-14 16:57] LABS: ALANINE AMINOTRANSFERASE 18 U/L (12-78); ALBUMIN 3.4 g/dL (3.4-5.0); ALKALINE PHOSPHATASE 88 U/L (46-116); ASPARTATE AMINOTRANSFERASE 13 U/L (15-37); BILIRUBIN,TOTAL 0.2 mg/dL (0.2-1.0); CARBON DIOXIDE 26 mmol/L (21-32); CHLORIDE 107 mmol/L (98-107); CREATININE 1.5 mg/dL (0.6-1.3); GLUCOSE 116 mg/dL (74-106); POTASSIUM 4.1 mmol/L (3.5-5.1); SODIUM SERUM 143 mmol/L (136-145); TOTAL PROTEIN, SERUM 7.7 g/dL (6.4-8.2); UREA NITROGEN, BLOOD 29 mg/dL (7-18)
--- NOTE | 2018-03-14 17:00 | NUR ---
HGB 7.7 TO CALL BACK PCP TO GO BACK TO [facility] 'S ORDER.
[2018-03-14] MEDS ORDERED: IBUPROFEN 600 MG TABLET PO ONE (17:13)
[2018-03-14] MEDS ORDERED: HYDROCODONE/APAP 10/325MG 1 EA TABLET ONE (17:19)
[2018-03-14] MEDS ORDERED: HYDROCODONE/APAP 10/325MG 1 EA TABLET PO ONE (17:30)
--- NOTE | 2018-03-14 17:33 | NUR ---
ENDORSED TO RAHUL ARIAS TO SENT BACK THE PT IN [facility].
--- NOTE | 2018-03-14 17:37 | NUR ---
CALLED TRANSPORT ETA IS 1830 TRIP NUMBER IS [id number] PER MATHIEU.
--- NOTE | 2018-03-14 18:48 | NUR ---
Patient discharged back to [facility] in stable condition. Written and verbal after care instructions given. Patient verbalizes understanding of instruction.
[2018-03-14 18:49] VITALS: BP 118/71
== END 2018-03-14 18:53 ==
LOC: ER 16:07
DX: D64.9 Anemia, unspecified (principal); G89.29 Other chronic pain; J44.9 Chronic obstructive pulmonary disease, unspecified; F20.9 Schizophrenia, unspecified; I10 Essential (primary) hypertension; F03.90 Unspecified dementia, unspecified severity, without behavioral disturbance, psychotic disturbance, mood disturbance, and anxiety; M19.90 Unspecified osteoarthritis, unspecified site; F17.200 Nicotine dependence, unspecified, uncomplicated; Z87.19 Personal history of other diseases of the digestive system; Z98.890 Other specified postprocedural states; Z88.0 Allergy status to penicillin; Z88.1 Allergy status to other antibiotic agents; Z79.899 Other long term (current) drug therapy
CPT/HCPCS: 36415; 80048-TC; 80076-TC; 85025-TC; 85730-TC; 86850-TC; A4606; Z7610